=== PATIENT | female | born 1970 | race Caucasian/White ===

== ENCOUNTER 2019-01-23 22:55 | Inpatient (IN) | payer MEDICAID, OTHER ==
[~2019-01-23] VITALS: Ht 165.1 cm; Wt 59.7 kg
[~2019-01-23 22:55] MED LIST: AMLO-145 PO; CEPH-443 PO; DOCU250C58 PO; HYDR-3498 PO; HYDR-843 PO; HYDR2TAB36 PO; IBUP-1542 PO; MEDR2.5T PO; METO-448 PO; NAPR220C61 PO; TRIA15CR52 TOP
[2019-01-23 23:01] VITALS: Ht 165.1 cm; Wt 59.7 kg
[2019-01-23] MEDS ORDERED: ONDANSETRON 4 MG INJ IV STA (23:53)
[2019-01-23] MEDS ORDERED: SOD CHLORIDE 0.9% 500 ML IV STA (23:53)
[2019-01-23] MEDS ORDERED: morphine 4 MG/ML VIAL IV STA (23:53)
[2019-01-24] MEDS ORDERED: ONDANSETRON 4 MG INJ IV PRN (02:30)
[2019-01-24] MEDS ORDERED: hydrALAzine 20 MG INJ IV ONE (02:30)
[2019-01-24] MEDS ORDERED: ACETAMINOPHEN 325 MG TAB PO PRN (02:30)
[2019-01-24] MEDS ORDERED: ONDANSETRON 4 MG INJ IV STA (02:48)
[2019-01-24] MEDS ORDERED: morphine 4 MG/ML VIAL IV STA (02:48)
--- NOTE | 2019-01-24 02:49 | ERD ---
ER Documentation Chief Complaint Chief Complaint PELVIC PAIN AND DYSURIA X 4 DAYS. HPI This is a 48-year-old female pelvic pain dysuria for the past 4 days. She also felt pelvic fullness. She said the pain is mild to moderate intensity. She is also had urgency and frequency of urination. Denies fevers or chills. Denies any other current complaints. Pain is mild to moderate intensity no exacerbating alleviating factors. ROS All systems reviewed and are negative except as per history of present illness. Medications Home Meds Active Scripts Ibuprofen* (Motrin*) 600 Mg Tab, 600 MG PO Q6H PRN for PAIN AND OR ELEVATED TEMP, #30 Prov:LUCY CABALLERO NP 05/30/15 Reported Medications Naproxen* (Naproxen*) 220 Mg Capsule, 220 MG PO TID, CAP 01/24/19 Medroxyprogesterone Acetate* (Provera*) Unknown Strength Tablet, PO DAILY, TAB 01/24/19 Discontinued Reported Medications [none] Unknown Strength No Conflict Check 05/30/15 Discontinued Scripts Hydrocodone Bit-Acetaminophen* ([place]*) 5-325 Mg Tab, 1 TAB PO Q6 PRN for SEVERE PAIN LEVEL 7-10, #20 TAB Prov:LUCY CABALLERO NP 05/30/15 Triamcinolone Acetonide* (Kenalog*) 0.5%-15GM Cr, 1 APPLIC TOP BID, #1 EA Prov:LUCY CABALLERO NP 03/13/15 Hydroxyzine Hcl* (Hydroxyzine Hcl*) 25 Mg Tablet, 25 MG PO Q8H PRN for ITCHING, #30 TAB Prov:LUCY CABALLERO NP 03/13/15 Cephalexin* (Keflex*) 500 Mg Capsule, 500 MG PO Q6 for 10 Days, CAP Prov:LUCY CABALLERO NP 03/13/15 Allergies Allergies: Coded Allergies: iodine (Unverified Allergy, Unknown, RASH, 01/24/19) PMhx/Soc History of Surgery: Yes (anal fissure repair, hemorrhoidectomy, ankle surgery) Hx Alcohol Use: No Hx Substance Use: No Hx Tobacco Use: No Smoking Status: Never smoker Physical Exam Vitals Vital Signs Date Temp Pulse Resp B/P (MAP) Pulse Ox O2 O2 Flow FiO2 Time Delivery Rate 01/24/19 61 16 199/112 98 Room Air 02:13 (141) 01/23/19 97.2 96 24 205/103 100 23:01 (137) Physical Exam Const: No acute distress Head: Atraumatic Eyes: Normal Conjunctiva ENT: Normal External Ears, Nose and Mouth. Neck: Full range of motion. No meningismus. Resp: Clear to auscultation bilaterally Cardio: Regular rate and rhythm, no murmurs Abd: Soft, non tender, non distended. Normal bowel sounds Skin: No petechiae or rashes Back: No midline or flank tenderness Ext: No cyanosis, or edema Neur: Awake and alert Psych: Normal Mood and Affect Result Diagram: 01/23/19234901/23/192349 Results 24 hrs Laboratory Tests Test 01/23/19 01:45 01/23/19 23:50 01/24/19 00:12 Urine Color RICK Urine Clarity SLIGHTLY CLOUDY Urine pH 5.0 Urine Specific [place] 1.030 Urine Ketones 1+ mg/dL Urine Nitrite NEGATIVE mg/dL Urine Bilirubin NEGATIVE mg/dL Urine Urobilinogen NEGATIVE mg/dL Urine Leukocyte Esterase TRACE Toan/ul Urine Microscopic RBC 55 /HPF Urine Microscopic WBC 11 /HPF Urine Squamous Epithelial Cells FEW /HPF Urine Mucus FEW /HPF Urine Hemoglobin 2+ mg/dL Urine Glucose NEGATIVE mg/dL Urine Total Protein 1+ mg/dl White Blood Count 16.8 10^3/ul Red Blood Count 4.96 10^6/ul Hemoglobin 14.0 g/dl Hematocrit 42.8 % Mean Corpuscular Volume 86.3 fl Mean Corpuscular Hemoglobin 28.2 pg Mean Corpuscular 32.7 g/dl Hemoglobin Concent Red Cell Distribution Width 13.3 % Platelet Count 383 10^3/UL Mean Platelet Volume 9.3 fl Immature Granulocytes % 0.400 % Neutrophils % 80.8 % Lymphocytes % 11.1 % Monocytes % 6.1 % Eosinophils % 1.3 % Basophils % 0.3 % Nucleated Red Blood Cells % 0.0 /100WBC Immature Granulocytes # 0.060 10^3/ul Neutrophils # 13.6 10^3/ul Lymphocytes # 1.9 10^3/ul Monocytes # 1.0 10^3/ul Eosinophils # 0.2 10^3/ul Basophils # 0.1 10^3/ul Nucleated Red Blood Cells # 0.0 10^3/ul Sodium Level 142 mmol/L Potassium Level 4.0 mmol/L Chloride Level 108 mmol/L Carbon Dioxide Level 24 mmol/L Anion Gap 10 Blood Urea Nitrogen 16 mg/dl Creatinine 0.84 mg/dl Est Glomerular Filtrat > 60 mL/min Rate mL/min Glucose Level 118 mg/dl Calcium Level 9.3 mg/dl Total Bilirubin 0.9 mg/dl Direct Bilirubin 0.00 mg/dl Indirect Bilirubin 0.9 mg/dl Aspartate Amino 21 IU/L Transf (AST/SGOT) Alanine 26 IU/L Aminotransferase (ALT/SGPT) Alkaline Phosphatase 75 IU/L Total Protein 7.3 g/dl Albumin 4.1 g/dl Globulin 3.20 g/dl Albumin/Globulin Ratio 1.28 Lipase 42 U/L Bedside Urine pH (LAB) 5.5 Bedside Urine Protein (LAB) 1+ Bedside Urine Glucose (UA) Negative Bedside Urine Ketones (LAB) Negative Bedside Urine Blood 2+ Bedside Urine Nitrite (LAB) Negative Bedside Urine Leukocyte Esterase 1+ (L Current Medications Medications Dose Sig/Ortiz Start Time Status Last (Trade) Ordered Route PRN Stop Time Admin Dose Reason Admin Sodium 500 ml @ Q1H STAT 01/23/19 DC 01/24/19 Chloride 500 mls/hr IV 23:53 00:14 01/24/19 00:52 Morphine 4 mg ONCE STAT 01/23/19 DC 01/24/19 Sulfate IV 23:53 00:15 (morphine) 01/23/19 23:55 Ondansetron 4 mg ONCE STAT 01/23/19 DC 01/24/19 HCl (Zofran IV 23:53 00:15 Inj) 01/23/19 23:55 Hydralazine 20 mg ONCE ONCE 01/24/19 DC 01/24/19 HCl IV 02:30 02:35 (Apresoline) 01/24/19 02:31 Ondansetron 4 mg BRIDGE ORDER 01/24/19 HCl (Zofran PRN IV 02:30 Inj) NAUSEA/VOMITI 01/25/19 02:29 NG 650 mg ER BRIDGE 01/24/19 Acetaminophen PRN PO 02:30 (Tylenol .MILD PAIN 01/25/19 02:29 Tab) 1-3 OR TEMP Procedures/MDM Medical decision makin-year-old female comes in with pelvic pain. She does have 1+ leukoesterase, however I doubt this is a cause of her pain. Culture results are currently pending. She does have multiple pelvic masses concerning for neoplasm. Patient will be admitted further evaluation and management with MRI endorsed to hospitalist team. Patient will need an oncology work-up to di fferentiate these pelvic masses and determine whether or not they are cancerous in nature. Patient made aware of results at bedside and understands care plan and diagnosis. Departure Diagnosis: Primary Impression: Acute pain in female pelvis Condition: Serious ESTEBAN HINOJOSA. Jan 24, 2019 02:49
[2019-01-24] MEDS ORDERED: NACL 0.9% 3 ML SYG IV SCH (06:00)
[2019-01-24] MEDS ORDERED: HYDROmorphONE 0.5 MG/0.5 ML SYG IV ONE (06:00)
[2019-01-24] MEDS ORDERED: ALBUTEROL/IPRATROPIUM (NEB) 3 ML AMP HHN PRN (06:00)
[2019-01-24] MEDS ORDERED: HYDROCODONE/APAP (5/325) TAB PO PRN ×2 (06:00)
[2019-01-24 06:32] VITALS: BP 131/84; PULSE 107; RESP 20
[2019-01-24 07:39] VITALS: BP 145/85; PULSE 82; RESP 18
[2019-01-24] MEDS: DEXTROSE 5%-0.45% NACL 1,000 ML IV SCH ×2 (07:46→15:36)
[2019-01-24] MEDS: CEFTRIAXONE 1 GM/50 ML (PMX) 50 ML IVPB SCH (08:27)
[2019-01-24] MEDS: HEPARIN 5,000 UNIT/1 ML VIAL SC SCH ×2 (08:33→20:39)
[2019-01-24] MEDS ORDERED: METOPROLOL 25 MG TAB PO SCH (09:00)
[2019-01-24] MEDS: ONDANSETRON 4 MG INJ IV PRN ×3 (09:53→23:59)
--- NOTE | 2019-01-24 10:15 | PN ---
Date/Time of Note Date/Time of Note DATE: 01/24/19 TIME: 10:06 Assessment/Plan VTE Prophylaxis Pharmacological prophylaxis: NA/contraindicated Pharm contraindication: low risk/ambulating Lines/Catheters IV Catheter Type (from Nrsg): Saline Lock Urinary Cath still in place: Yes Reason Cath still needed: urinary retention Assessment/Plan Hospital Course 48 y/o F who presented with pelvic pain and dysuria for the past 4 days currently managed as follows: 1. Pelvic mass, -US shows complex 11cm ovarian cystic mass, radiology recommends MRI to further define. 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 -pelvic pain - pain meds 2. UTI -empiric abx, cultures 3. Urolithiasis without obstruction: -encourage hydration 4. urinary retention: 2/2 pressure from #1? 5. accelerated HTN: improved -continue current meds and titrate for optimal control further interventions per course. Result Diagram: 01/24/1918 01/24/19 0717 Results 24hrs Laboratory Tests Test 01/23/19 23:50 01/24/19 00:12 01/24/19 07:17 01/24/19 07:18 White Blood Count 16.8 #H 17.9 H Red Blood Count 4.96 4.91 Hemoglobin 14.0 14.1 Hematocrit 42.8 42.8 Mean Corpuscular 86.3 87.2 Volume Mean Corpuscular 28.2 L 28.7 L Hemoglobin Mean Corpuscular 32.7 32.9 Hemoglobin Concent Red Cell 13.3 13.4 Distribution Width Platelet Count 383 385 Mean Platelet Volume 9.3 # 9.5 Immature 0.400 0.400 Granulocytes % Neutrophils % 80.8 H 92.2 H Lymphocytes % 11.1 L 4.0 L Monocytes % 6.1 3.2 Eosinophils % 1.3 0.0 Basophils % 0.3 0.2 Nucleated Red Blood 0.0 0.0 Cells % Immature 0.060 H 0.080 H Granulocytes # Neutrophils # 13.6 H 16.5 H Lymphocytes # 1.9 0.7 L Monocytes # 1.0 H 0.6 Eosinophils # 0.2 0.0 Basophils # 0.1 0.0 Nucleated Red Blood 0.0 0.0 Cells # Sodium Level 142 135 Potassium Level 4.0 4.0 Chloride Level 108 106 Carbon Dioxide Level 24 22 Anion Gap 10 7 Blood Urea Nitrogen 16 15 Creatinine 0.84 0.91 Est Glomerular > 60 > 60 Filtrat Rate mL/min Glucose Level 118 124 Calcium Level 9.3 8.4 Total Bilirubin 0.9 1.3 Direct Bilirubin 0.00 0.00 Indirect Bilirubin 0.9 1.3 H Aspartate Amino 21 24 Transf (AST/SGOT) Alanine 26 22 Aminotransferase (AL T/SGPT) Alkaline Phosphatase 75 68 Total Protein 7.3 7.1 Albumin 4.1 3.7 Globulin 3.20 3.40 H Albumin/Globulin 1.28 1.08 Ratio Lipase 42 Bedside Urine pH 5.5 (LAB) Bedside Urine 1+ H Protein (LAB) Bedside Urine Negative Glucose (UA) Bedside Urine Negative Ketones (LAB) Bedside Urine Blood 2+ H Bedside Urine Negative Nitrite (LAB) Bedside Urine 1+ H Leukocyte Esterase (L Hemoglobin A1c 5.2 Phosphorus Level 3.0 Magnesium Level 1.9 Triglycerides Level 50 Cholesterol Level 151 LDL Cholesterol, 107 Calculated HDL Cholesterol 34 L Cholesterol/HDL 4.4 Ratio Thyroid Stimulating Pending Hormone (TSH) Subjective 24 Hr Interval Summary Free Text/Dictation pelvic pain , had urinary retention in ER requiring tomas, mild hematuria likely from trauma after transvaginal USS Exam/Review of Systems Exam Vitals Vital Signs Date Temp Pulse Resp B/P (MAP) Pulse Ox O2 O2 Flow FiO2 Time Delivery Rate 01/24/19 98.9 82 18 145/85 96 Room Air 07:39 (105) Exam General: A&O x3, answering questions appropriately HEENT: NC/ AT. PERRL. EOM intact Neck: supple CVS: S1, S2, RRR. no murmurs. no pain on chest wall palpation Lungs: CTA b/l. no wheezing or rhonchi Abd: soft, tender to deep palpation in lower abd pain, +bs Ext: moving all extremities skin: no rashes Results Results 24hrs Laboratory Tests Test 01/23/19 23:50 01/24/19 00:12 01/24/19 07:17 01/24/19 07:18 White Blood Count 16.8 #H 17.9 H Red Blood Count 4.96 4.91 Hemoglobin 14.0 14.1 Hematocrit 42.8 42.8 Mean Corpuscular 86.3 87.2 Volume Mean Corpuscular 28.2 L 28.7 L Hemoglobin Mean Corpuscular 32.7 32.9 Hemoglobin Concent Red Cell 13.3 13.4 Distribution Width Platelet Count 383 385 Mean Platelet Volume 9.3 # 9.5 Immature 0.400 0.400 Granulocytes % Neutrophils % 80.8 H 92.2 H Lymphocytes % 11.1 L 4.0 L Monocytes % 6.1 3.2 Eosinophils % 1.3 0.0 Basophils % 0.3 0.2 Nucleated Red Blood 0.0 0.0 Cells % Immature 0.060 H 0.080 H Granulocytes # Neutrophils # 13.6 H 16.5 H Lymphocytes # 1.9 0.7 L Monocytes # 1.0 H 0.6 Eosinophils # 0.2 0.0 Basophils # 0.1 0.0 Nucleated Red Blood 0.0 0.0 Cells # Sodium Level 142 135 Potassium Level 4.0 4.0 Chloride Level 108 106 Carbon Dioxide Level 24 22 Anion Gap 10 7 Blood Urea Nitrogen 16 15 Creatinine 0.84 0.91 Est Glomerular > 60 > 60 Filtrat Rate mL/min Glucose Level 118 124 Calcium Level 9.3 8.4 Total Bilirubin 0.9 1.3 Direct Bilirubin 0.00 0.00 Indirect Bilirubin 0.9 1.3 H Aspartate Amino 21 24 Transf (AST/SGOT) Alanine 26 22 Aminotransferase (AL T/SGPT) Alkaline Phosphatase 75 68 Total Protein 7.3 7.1 Albumin 4.1 3.7 Globulin 3.20 3.40 H Albumin/Globulin 1.28 1.08 Ratio Lipase 42 Bedside Urine pH 5.5 (LAB) Bedside Urine 1+ H Protein (LAB) Bedside Urine Negative Glucose (UA) Bedside Urine Negative Ketones (LAB) Bedside Urine Blood 2+ H Bedside Urine Negative Nitrite (LAB) Bedside Urine 1+ H Leukocyte Esterase (L Hemoglobin A1c 5.2 Phosphorus Level 3.0 Magnesium Level 1.9 Triglycerides Level 50 Cholesterol Level 151 LDL Cholesterol, 107 Calculated HDL Cholesterol 34 L Cholesterol/HDL 4.4 Ratio Thyroid Stimulating Pending Hormone (TSH) Imaging Imaging PROCEDURE: CT ABDOMEN AND PELVIS WITHOUT CONTRAST CLINICAL INDICATION: Abdominal pain. TECHNIQUE: CT of the abdomen and pelvis was performed without intravenous contrast. Oral contrast was not administered prior to the examination. Coronal and sagittal reformatted images were obtained from the axial source imag es. Images were reviewed on a high-resolution PACS workstation. DICOM images are available. Dose information: Based on a 32 cm phantom, the estimated radiation dose (CTDIvol mGy) for each series in this exam is 6.8. The estimated cumulative dose (DLP mGy-cm) is 389. One or more of the following dose reduction techniques were used: - Automated exposure control. - Adjustment of the mA and/or kV according to patient size. - Use of iterative reconstruction technique. COMPARISON: None available. FINDINGS: In the absence of intravenous contrast, the study constitutes a limited assessme nt of the solid organs, bowel and vessels. LUNG BASES: Bibasilar dependent subsegmental atelectasis. ABDOMEN/PELVIS: Liver: Normal noncontrast appearance. Gallbladder: Normal noncontrast appearance. Bile ducts: No intrahepatic or extrahepatic biliary duct dilatation. Spleen: Normal noncontrast appearance. Pancreas: Normal noncontrast appearance. Adrenal glands: Normal noncontrast appearance. Kidneys and ureters: Cystic lesion of the right inferior pole measuring 1.7 x 1.9 cm. Further characterization with renal ultrasound is recommended. Mild right hydroureternephrosis secondary to a large complex intrapelvic mass. No left-sided hydronephrosis. No renal calculus. Aorta and IVC: Normal size. Lymph nodes: Normal noncontrast appearance. Gastrointestinal tract: There is moderate retained debris in the stomach. Small bowel loops are nondilated. Moderate retained fecal matter is present throughout the colon which may reflect constipation. Redundant sigmoid colon. Scattered colonic diverticulosis without diverticulitis. Appendix: The appendix is not seen. Bladder: Decompressed urinary bladder with indwelling Tomas catheter. The urinary bladder is compressed and displaced anterior and right lateral by an enlarged circumscribed complex intrapelvic mass. Pelvic Organs: Enlarged complex circumscribed cystic mass located in the central pelvis measuring at least 11 x 11 x 10 cm (AP, transverse, craniocaudal). Findings are likely ovarian in etiology. Correlate with surgical history. Has the patient undergone a previous hysterectomy? Surgical clips located in the left pelvis adjacent to left lateral border of this mass. Peritoneal cavity: No free fluid or free intraperitoneal air. Abdominal wall: Normal noncontrast appearance. MUSCULOSKELETAL: Bones: No acute fracture.No suspicious bone lesions. Severe disc height loss and anterior spinal degenerative enthesopathy changes involving L4-5. Trace retrospondylolisthesis of L4 on L5. IMPRESSION: 1. Complex circumscribed cystic mass located in the central pelvis measuring at least 11 x 11 x 10 cm likely of ovarian origin. Further evaluation with pelvic ultrasound and ultimately MRI recommended. 2. Mild right sided hydroureteronephrosis secondary to a several pelvic complex cystic mass. 3. Cystic lesion of the right inferior renal pole measuring 11 x 11 x 10 cm. F urther evaluation with renal ultrasound is recommended. 4. Severe disc height loss and anterior spinal degenerative enthesopathy changes involving L4-5. 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 on 01/24/2019 with instructions to provide the results of this examination to the patient's telemetry technician. Please note that in the absence of intravenous contrast the study does not evaluate the patency of the vasculature. RPTAT: HRSR Physician Mckenzie Date Time Electronically viewed and signed by Physician Mckenzie on 01/24/2019 01:20 RR/ CC: ESTEBAN HINOJOSA [id number] Medications Medication Current Medications Ondansetron HCl (Zofran Inj) 4 mg BRIDGE ORDER PRN IV NAUSEA/VOMITING; Start 01/24/19 at 02:30; Stop 01/25/19 at 02:29 Acetaminophen (Tylenol Tab) 650 mg ER BRIDGE PRN PO .MILD PAIN 1-3 OR TEMP; Start 01/24/19 at 02:30; Stop 01/25/19 at 02:29 Dextrose/Sodium Chloride 1,000 ml @ 120 mls/hr Q8H20M IV Last administered on 01/24/19at 07:46; Admin Dose 120 MLS/HR; Start 01/24/19 at 05:55 IV Flush (NS 3 ml) 3 ml PER PROTOCOL IV ; Start 01/24/19 at 06:00 Ondansetron HCl (Zofran Inj) 4 mg Q6H PRN IV NAUSEA/VOMITING Last administered on 01/24/19at 09:53; Admin Dose 4 MG; Start 01/24/19 at 06:00 Acetaminophen (Tylenol Tab) 650 mg Q6H PRN PO .PAIN 1-3 OR TEMP; Start 01/24/19 at 06:00 Acetaminophen/ Hydrocodone Bitart ([place] (5/325)) 1 tab Q6H PRN PO .MOD PAIN 4- 6; Start 01/24/19 at 06:00 Acetaminophen/ Hydrocodone Bitart ([place] (5/325)) 2 tab Q6H PRN PO .SEVERE PAIN 7-10; Start 01/24/19 at 06:00 Heparin Sodium (Porcine) (Heparin (5000 Units/1ml)) 5,000 unit Q12 SC Last administered on 01/24/19at 08:33; Admin Dose 5,000 UNIT; Start 01/24/19 at 09:00 Albuterol/ Ipratropium (Duoneb) 3 ml Q2H RESP THERAPY PRN HHN SHORTNESS OF BREATH; Start 01/24/19 at 06:00 Metoprolol Tartrate (Lopressor) 25 mg Q12 PO Last administered on 01/24/19at 08:31; Admin Dose 25 MG; Start 01/24/19 at 09:00 Ceftriaxone Sodium 50 ml @ 100 mls/hr DAILY IVPB Last administered on 01/24/19at 08:27; Admin Dose 100 MLS/HR; Start 01/24/19 at 09:00 SERGE MARY Jan 24, 2019 10:15
[2019-01-24] MEDS: morphine 2 MG INJ IV PRN (12:46)
[2019-01-24 14:00] VITALS: BP 157/96; PULSE 93; RESP 18
[2019-01-24] MEDS: KETOROLAC 30 MG INJ IV PRN (17:46)
[2019-01-24] MEDS: METOPROLOL 25 MG TAB PO SCH (17:46)
[2019-01-24 19:24] VITALS: BP 137/72; PULSE 86; RESP 18
--- NOTE | 2019-01-24 20:08 | CONS ---
Assessment/Plan Assessment/Plan Hospital Course (Demo Recall) 48-year-old female presented to the emergency room was severe abdominal pain. She underwent a CT scan of the abdomen and pelvis and that showed: 1. Complex circumscribed cystic mass located in the central pelvis measuring at least 11 x 11 x 10 cm likely of ovarian origin. Further evaluation with pelvic ultrasound and ultimately MRI recommended. 2. Mild right sided hydroureternephrosis secondary to a several pelvic complex cystic mass. 3. Cystic lesion of the right inferior renal pole measuring 11 x 11 x 10 cm. Further evaluation with renal ultrasound is recommended. 4. Severe disc height loss and anterior spinal degenerative enthesopathy changes involving L4-5. Renal ultrasound: Mild bilateral hydronephrosis. 2.1 cm simple right renal cyst. 13.9 cm potential soft tissue mass in the midline of the pelvis that likely corresponds to the pelvic mass seen on prior CT. Incidental note made of cholelithiasis Pelvic ultrasound: Large solid mass in the pelvis. A possible ovarian mass cannot be excluded. Surgical consultation and pelvic MRI is recommended. Patient states that she has been menopausal for about 2 years and she has been spotting on and off for the past 6 months. She made an appointment with [facility] on January 04 and she went to that appointment but they could not do much because her vagina is too small and there was no place to do the ultrasound. She is supposed to go back to them in February for additional work-up. Presently the patient has an indwelling Saavedra catheter and that is draining blood-tinged urine and that is because of the undue pelvic ultrasound. The ureters are obstructed because of the pressure on the bladder by the mass. The patient needs OPERATIONS TRAINER consultation for possible excision removal of the pelvic mass. Consultation Date/Type/Reason Admit Date/Time Jan 24, 2019 at 02:22 Date of Consultation: Jan 24, 2019 Type of Consult Urology Reason for Consultation Bilateral hydronephrosis and pelvic mass Requesting Provider: SERGE MARY Date/Time of Note DATE: 01/24/19 TIME: 19:56 Hx of Present Illness 48-year-old female presented to the emergency room was severe abdominal pain. She underwent a CT scan of the abdomen and pelvis and that showed: 1. Complex circumscribed cystic mass located in the central pelvis measuring at least 11 x 11 x 10 cm likely of ovarian origin. Further evaluation with pelvic ultrasound and ultimately MRI recommended. 2. Mild right sided hydroureternephrosis secondary to a several pelvic complex cystic mass. 3. Cystic lesion of the right inferior renal pole measuring 11 x 11 x 10 cm. Further evaluation with renal ultrasound is recommended. 4. Severe disc height loss and anterior spinal degenerative enthesopathy changes involving L4-5. Renal ultrasound: Mild bilateral hydronephrosis. 2.1 cm simple right renal cyst. 13.9 cm potential soft tissue mass in the midline of the pelvis that likely corresponds to the pelvic mass seen on prior CT. Incidental note made of cholelithiasis Pelvic ultrasound: Large solid mass in the pelvis. A possible ovarian mass cannot be excluded. Surgical consultation and pelvic MRI is recommended. Patient states that she has been menopausal for about 2 years and she has been spotting on and off for the past 6 months. She made an appointment with [facility] on January 04 and she went to that appointment but they could not do much because her vagina is too small and there was no place to do the ultrasound. She is supposed to go back to them in February for additional work-up. Subjective hx not possible: pt non-verbal Constitutional: no complaints Eyes: no complaints ENT: no complaints Respiratory: no complaints Cardiovascular: no complaints Gastrointestinal: pain (Lower abdomen) Genitourinary: other (Difficulty urinating) Musculoskeletal: no complaints Skin: no complaints Neurologic: no complaints Past Medical History Medical History: no pertinent history Home Meds Active Scripts Ibuprofen* (Motrin*) 600 Mg Tab, 600 MG PO Q6H PRN for PAIN AND OR ELEVATED TEMP, #30 Prov:LUCY CABALLERO NP 05/30/15 Reported Medications Naproxen* (Naproxen*) 220 Mg Capsule, 220 MG PO TID, CAP 01/24/19 Medroxyprogesterone Acetate* (Provera*) Unknown Strength Tablet, PO DAILY, TAB 01/24/19 Discontinued Reported Medications [none] Unknown Strength No Conflict Check 05/30/15 Discontinued Scripts Hydrocodone Bit-Acetaminophen* (Catlin*) 5-325 Mg Tab, 1 TAB PO Q6 PRN for SEVERE PAIN LEVEL 7-10, #20 TAB Prov:LUCY CABALLERO NP 05/30/15 Triamcinolone Acetonide* (Kenalog*) 0.5%-15GM Cr, 1 APPLIC TOP BID, #1 EA Prov:LUCY CABALLERO NP 03/13/15 Hydroxyzine Hcl* (Hydroxyzine Hcl*) 25 Mg Tablet, 25 MG PO Q8H PRN for ITCHING, #30 TAB Prov:LUCY CABALLERO LOGISTICS CENTER MANAGER 03/13/15 Cephalexin* (Keflex*) 500 Mg Capsule, 500 MG PO Q6 for 10 Days, CAP Prov:LUCY CABALLERO NP 03/13/15 Medications Current Medications Dextrose/Sodium Chloride 1,000 ml @ 100 mls/hr Q10H IV Last administered on 01/24/19at 15:36; Admin Dose 100 MLS/HR; Start 01/24/19 at 05:55 IV Flush (NS 3 ml) 3 ml PER PROTOCOL IV ; Start 01/24/19 at 06:00 Ondansetron HCl (Zofran Inj) 4 mg Q6H PRN IV NAUSEA/VOMITING Last administered on 01/24/19at 18:10; Admin Dose 4 MG; Start 01/24/19 at 06:00 Acetaminophen (Tylenol Tab) 650 mg Q6H PRN PO .PAIN 1-3 OR TEMP; Start 01/24/19 at 06:00 Acetaminophen/ Hydrocodone Bitart ([place]lin (5/325)) 1 tab Q6H PRN PO .MOD PAIN 4- 6; Start 01/24/19 at 06:00 Acetaminophen/ Hydrocodone Bitart ([place] (5/325)) 2 tab Q6H PRN PO .SEVERE PAIN 7-10; Start 01/24/19 at 06:00 Heparin Sodium (Porcine) (Heparin (5000 Units/1ml)) 5,000 unit Q12 SC Last administered on 01/24/19at 08:33; Admin Dose 5,000 UNIT; Start 01/24/19 at 09:00 Albuterol/ Ipratropium (Duoneb) 3 ml Q2H RESP THERAPY PRN HHN SHORTNESS OF BREATH; Start 01/24/19 at 06:00 Ceftriaxone Sodium 50 ml @ 100 mls/hr DAILY IVPB Last administered on 01/24/19at 08:27; Admin Dose 100 MLS/HR; Start 01/24/19 at 09:00 Metoprolol Tartrate (Lopressor) 25 mg Q8H PO Last administered on 01/24/19at 17:46; Admin Dose 25 MG; Start 01/24/19 at 17:00 Morphine Sulfate (morphine) 2 mg Q4H PRN IV SEVERE PAIN LEVEL 7-10 Last administered on 01/24/19at 12:46; Admin Dose 2 MG; Start 01/24/19 at 12:00 Ketorolac Tromethamine (Toradol) 30 mg Q6H PRN IV PAIN LEVEL 1-3 Last administe red on 01/24/19at 17:46; Admin Dose 30 MG; Start 01/24/19 at 16:30; Stop 01/26/19 at 15:00 Allergies: Coded Allergies: iodine (Unverified Allergy, Unknown, RASH, 01/24/19) Past Surgical History Past Surgical Hx: other (Patient had fulguration of her tubes about 5 years ago. She did have 2 pregnancies which miscarry and she did not want to have any children. She also had surgery on her left ankle) Social History Smoking Status: Never smoker Exam/Review of Systems Exam Vitals Vital Signs Date Temp Pulse Resp B/P (MAP) Pulse Ox O2 O2 Flow FiO2 Time Delivery Rate 01/24/19 98.1 86 18 137/72 98 Room Air 19:24 (93) Constitutional: alert Psych: no complaints Head: normocephalic Eyes: nl conjunctiva ENMT: nl external ears & nose Neck: supple Respiratory: normal air movement; No wheezing Cardiovascular: No jugular venous distention (JVD) Gastrointestinal: mass (Lower abdomen) Genitourinary - Female: other (Pelvic exam: Very small vagina and completely blocked by the pelvic mass.) Musculoskeletal: nl extremities to inspection Extremities: No calf tenderness Results Result Diagram: 01/24/19 0718 01/24/19 0717 Results 24hrs Laboratory Tests Test 01/23/19 23:50 01/24/19 00:12 01/24/19 07:17 01/24/19 07:18 White Blood Count 16.8 #H 17.9 H Red Blood Count 4.96 4.91 Hemoglobin 14.0 14.1 Hematocrit 42.8 42.8 Mean Corpuscular 86.3 87.2 Volume Mean Corpuscular 28.2 L 28.7 L Hemoglobin Mean Corpuscular 32.7 32.9 Hemoglobin Concent Red Cell 13.3 13.4 Distribution Width Platelet Count 383 385 Mean Platelet Volume 9.3 # 9.5 Immature 0.400 0.400 Granulocytes % Neutrophils % 80.8 H 92.2 H Lymphocytes % 11.1 L 4.0 L Monocytes % 6.1 3.2 Eosinophils % 1.3 0.0 Basophils % 0.3 0.2 Nucleated Red Blood 0.0 0.0 Cells % Immature 0.060 H 0.080 H Granulocytes # Neutrophils # 13.6 H 16.5 H Lymphocytes # 1.9 0.7 L Monocytes # 1.0 H 0.6 Eosinophils # 0.2 0.0 Basophils # 0.1 0.0 Nucleated Red Blood 0.0 0.0 Cells # Sodium Level 142 135 Potassium Level 4.0 4.0 Chloride Level 108 106 Carbon Dioxide Level 24 22 Anion Gap 10 7 Blood Urea Nitrogen 16 15 Creatinine 0.84 0.91 Est Glomerular > 60 > 60 Filtrat Rate mL/min Glucose Level 118 124 Calcium Level 9.3 8.4 Total Bilirubin 0.9 1.3 Direct Bilirubin 0.00 0.00 Indirect Bilirubin 0.9 1.3 H Aspartate Amino 21 24 Transf (AST/SGOT) Alanine 26 22 Aminotransferase (AL T/SGPT) Alkaline Phosphatase 75 68 Total Protein 7.3 7.1 Albumin 4.1 3.7 Globulin 3.20 3.40 H Albumin/Globulin 1.28 1.08 Ratio Lipase 42 Bedside Urine pH 5.5 (LAB) Bedside Urine 1+ H Protein (LAB) Bedside Urine Negative Glucose (UA) Bedside Urine Negative Ketones (LAB) Bedside Urine Blood 2+ H Bedside Urine Negative Nitrite (LAB) Bedside Urine 1+ H Leukocyte Esterase (L Hemoglobin A1c 5.2 Phosphorus Level 3.0 Magnesium Level 1.9 Triglycerides Level 50 Cholesterol Level 151 LDL Cholesterol, 107 Calculated HDL Cholesterol 34 L Cholesterol/HDL 4.4 Ratio Thyroid Stimulating 1.520 Hormone (TSH) Imaging Imaging CT scan of the abdomen and pelvis: 1. Complex circumscribed cystic mass located in the central pelvis measuring at least 11 x 11 x 10 cm likely of ovarian origin. Further evaluation with pelvic ultrasound and ultimately MRI recommended. 2. Mild right sided hydroureternephrosis secondary to a several pelvic complex cystic mass. 3. Cystic lesion of the right inferior renal pole measuring 11 x 11 x 10 cm. Further evaluation with renal ultrasound is recommended. 4. Severe disc height loss and anterior spinal degenerative enthesopathy changes involving L4-5. RP piper helper personnel were contacted by [facility]mila 01:19 a.m. on 01/24/2019 with instructions to provide the results of this examination to the patient's criminal defense attorney. Renal ultrasound: Mild bilateral hydronephrosis. 2.1 cm simple right renal cyst. 13.9 cm potential soft tissue mass in the midline of the pelvis that likely corresponds to the pelvic mass seen on prior CT. Incidental note made of cholelithiasis Pelvic ultrasound: Large solid mass in the pelvis. A possible ovarian mass cannot be excluded. Surgical consultation and pelvic MRI is recommended. Medications Medication Current Medications Dextrose/Sodium Chloride 1,000 ml @ 100 mls/hr Q10H IV Last administered on 01/24/19at 15:36; Admin Dose 100 MLS/HR; Start 01/24/19 at 05:55 IV Flush (NS 3 ml) 3 ml PER PROTOCOL IV ; Start 01/24/19 at 06:00 Ondansetron HCl (Zofran Inj) 4 mg Q6H PRN IV NAUSEA/VOMITING Last administered on 01/24/19at 18:10; Admin Dose 4 MG; Start 01/24/19 at 06:00 Acetaminophen (Tylenol Tab) 650 mg Q6H PRN PO .PAIN 1-3 OR TEMP; Start 01/24/19 at 06:00 Acetaminophen/ Hydrocodone Bitart (Catlin (5/325)) 1 tab Q6H PRN PO .MOD PAIN 4- 6; Start 01/24/19 at 06:00 Acetaminophen/ Hydrocodone Bitart ([place]lin (5/325)) 2 tab Q6H PRN PO .SEVERE PAIN 7-10; Start 01/24/19 at 06:00 Heparin Sodium (Porcine) (Heparin (5000 Units/1ml)) 5,000 unit Q12 SC Last administered on 01/24/19at 08:33; Admin Dose 5,000 UNIT; Start 01/24/19 at 09:00 Albuterol/ Ipratropium (Duoneb) 3 ml Q2H RESP THERAPY PRN HHN SHORTNESS OF BREATH; Start 01/24/19 at 06:00 Ceftriaxone Sodium 50 ml @ 100 mls/hr DAILY IVPB Last administered on 01/24/19at 08:27; Admin Dose 100 MLS/HR; Start 01/24/19 at 09:00 Metoprolol Tartrate (Lopressor) 25 mg Q8H PO Last administered on 01/24/19 17:46; Admin Dose 25 MG; Start 01/24/19 at 17:00 Morphine Sulfate (morphine) 2 mg Q4H PRN IV SEVERE PAIN LEVEL 7-10 Last administered on 01/24/19at 12:46; Admin Dose 2 MG; Start 01/24/19 at 12:00 Ketorolac Tromethamine (Toradol) 30 mg Q6H PRN IV PAIN LEVEL 1-3 Last administered on 01/24/19at 17:46; Admin Dose 30 MG; Start 01/24/19 at 16:30; Stop 01/26/19 at 15:00 KEEGAN ALBERTO MD Jan 24, 2019 20:08
[2019-01-24 23:57] VITALS: BP 150/80; PULSE 80; RESP 18
[2019-01-25] MEDS: KETOROLAC 30 MG INJ IV PRN
[2019-01-25] MEDS: METOPROLOL 25 MG TAB PO SCH ×3 (00:02→18:50)
[2019-01-25] MEDS: DEXTROSE 5%-0.45% NACL 1,000 ML IV SCH ×3 (03:47→21:02)
[2019-01-25] MEDS ORDERED: HYDROmorphONE 1 MG/ML SYG IV ONE (03:57)
[2019-01-25 07:33] VITALS: BP 115/68; PULSE 70; RESP 16
[2019-01-25] MEDS: CEFTRIAXONE 1 GM/50 ML (PMX) 50 ML IVPB SCH (08:21)
[2019-01-25] MEDS: HEPARIN 5,000 UNIT/1 ML VIAL SC SCH (08:24)
[2019-01-25] MEDS: ONDANSETRON 4 MG INJ IV PRN (10:19)
[2019-01-25] MEDS: morphine 2 MG INJ IV PRN (10:20)
[2019-01-25] MEDS: morphine 4 MG/ML VIAL IV PRN ×3 (12:12→23:01)
--- NOTE | 2019-01-25 13:59 | CONS ---
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 Saavedra catheter draining very little urine. Creatinine is going up. Results/Medications Result Diagram: 01/25/19 0434 01/25/19 0434 Results 24 hrs Laboratory Tests Test 01/25/19 04:34 01/25/19 10:24 White Blood Count 14.6 H Red Blood Count 4.17 L Hemoglobin 11.9 L Hematocrit 36.8 L Mean Corpuscular Volume 88.2 Mean Corpuscular Hemoglobin 28.5 L Mean Corpuscular Hemoglobin Concent 32.3 Red Cell Distribution Width 13.8 Platelet Count 336 Mean Platelet Volume 9.8 Immature Granulocytes % 0.500 H Neutrophils % 82.0 H Lymphocytes % 10.0 L Monocytes % 6.0 Eosinophils % 1.2 Basophils % 0.3 Nucleated Red Blood Cells % 0.0 Immature Granulocytes # 0.070 H Neutrophils # 11.9 H Lymphocytes # 1.5 Monocytes # 0.9 Eosinophils # 0.2 Basophils # 0.0 Nucleated Red Blood Cells # 0.0 Sodium Level 134 L Potassium Level 3.9 Chloride Level 105 Carbon Dioxide Level 20 L Anion Gap 9 Blood Urea Nitrogen 21 H Creatinine 2.56 #H Est Glomerular Filtrat Rate mL/min 20 L Glucose Level 122 Calcium Level 7.3 L Phosphorus Level 4.8 Magnesium Level 1.8 Prothrombin Time 13.0 Prothrombin Time Ratio 1.0 INR International Normalized Ratio 0.97 Activated Partial Thromboplast Time 37.8 H Home Meds Active Scripts Ibuprofen* (Motrin*) 600 Mg Tab, 600 MG PO Q6H PRN for PAIN AND OR ELEVATED TEMP, #30 Prov:LUCY CABALLERO NP 05/30/15 Reported Medications Naproxen* (Naproxen*) 220 Mg Capsule, 220 MG PO TID, CAP 01/24/19 Medroxyprogesterone Acetate* (Provera*) Unknown Strength Tablet, PO DAILY, TAB 01/24/19 Discontinued Reported Medications [none] Unknown Strength No Conflict Check 05/30/15 Discontinued Scripts Hydrocodone Bit-Acetaminophen* ([place]amo*) 5-325 Mg Tab, 1 TAB PO Q6 PRN for SEVERE PAIN LEVEL 7-10, #20 TAB Prov:LUCY CABALLERO NP 05/30/15 Triamcinolone Acetonide* (Kenalog*) 0.5%-15GM Cr, 1 APPLIC TOP BID, #1 EA Prov:LUCY CABALLERO NP 03/13/15 Hydroxyzine Hcl* (Hydroxyzine Hcl*) 25 Mg Tablet, 25 MG PO Q8H PRN for ITCHING, #30 TAB Prov:LUCY CABALLERO NP 03/13/15 Cephalexin* (Keflex*) 500 Mg Capsule, 500 MG PO Q6 for 10 Days, CAP Prov:LUCY CABALLERO NP 03/13/15 Medications Current Medications Dextrose/Sodium Chloride 1,000 ml @ 100 mls/hr Q10H IV Last administered on 01/25/19at 12:12; Admin Dose 100 MLS/HR; Start 01/24/19 at 05:55 IV Flush (NS 3 ml) 3 ml PER PROTOCOL IV ; Start 01/24/19 at 06:00 Ondansetron HCl (Zofran Inj) 4 mg Q6H PRN IV NAUSEA/VOMITING Last administered on 01/25/19at 10:19; Admin Dose 4 MG; Start 01/24/19 at 06:00 Acetaminophen (Tylenol Tab) 650 mg Q6H PRN PO .PAIN 1-3 OR TEMP; Start 01/24/19 at 06:00 Acetaminophen/ Hydrocodone Bitart ([place] (5/325)) 1 tab Q6H PRN PO MILD PAIN LEVEL 1-3; Start 01/24/19 at 06:00 Acetaminophen/ Hydrocodone Bitart ([place] (5/325)) 2 tab Q6H PRN PO MODERATE PAIN LEVEL 4-6; Start 01/24/19 at 06:00 Heparin Sodium (Porcine) (Heparin (5000 Units/1ml)) 5,000 unit Q12 SC Last administered on 01/25/19at 08:24; Admin Dose 5,000 UNIT; Start 01/24/19 at 09:00; Status Hold Albuterol/ Ipratropium (Duoneb) 3 ml Q2H RESP THERAPY PRN HHN SHORTNESS OF BREATH; Start 01/24/19 at 06:00 Ceftriaxone Sodium 50 ml @ 100 mls/hr DAILY IVPB Last administered on 01/25/19at 08:21; Admin Dose 100 MLS/HR; Start 01/24/19 at 09:00 Metoprolol Tartrate (Lopressor) 25 mg Q8H PO Last administered on 01/25/19at 08:21; Admin Dose 25 MG; Start 01/24/19 at 17:00 Morphine Sulfate (morphine) 4 mg Q4H PRN IV SEVERE PAIN LEVEL 7-10 Last administered on 01/25/19at 12:12; Admin Dose 4 MG; Start 01/25/19 at 10:30 Assessment/Plan Hospital Course (Demo Recall) 48-year-old female presented to the emergency room was severe abdominal pain. She underwent a CT scan of the abdomen and pelvis and that showed: 1. Complex circumscribed cystic mass located in the central pelvis measuring at least 11 x 11 x 10 cm likely of ovarian origin. Further evaluation with pelvic ultrasound and ultimately MRI recommended. 2. Mild right sided hydroureternephrosis secondary to a several pelvic complex cystic mass. 3. Cystic lesion of the right inferior renal pole measuring 11 x 11 x 10 cm. Further evaluation with renal ultrasound is recommended. 4. Severe disc height loss and anterior spinal degenerative enthesopathy changes involving L4-5. Renal ultrasound: Mild bilateral hydronephrosis. 2.1 cm simple right renal cyst. 13.9 cm potential soft tissue mass in the midline of the pelvis that likely corresponds to the pelvic mass seen on prior CT. Incidental note made of cholelithiasis Pelvic ultrasound: Large solid mass in the pelvis. A possible ovarian mass cannot be excluded. Surgical consultation and pelvic MRI is recommended. Patient states that she has been menopausal for about 2 years and she has been spotting on and off for the past 6 months. She made an appointment with [facility] on January 04 and she went to that appointment but they could not do much because her vagina is too small and there was no place to do the ultrasound. She is supposed to go back to them in February for additional w ork-up. Presently the patient has an indwelling Saavedra catheter and that is draining blood-tinged urine and that is because of the undue pelvic ultrasound. The ureters are obstructed because of the pressure on the bladder by the mass. The patient needs MINE SUPERVISOR consultation for possible excision removal of the pelvic mass. Since she has hydronephrosis and the ureters are compressed by the tumor she ne eds bilateral nephrostomy tubes to keep her kidney function well. If the radiologist thinks that there is no hydronephrosis enough to do the nephrostomy tubes today we will try to do it tomorrow. Her bladder is pushed anteriorly by the tumor and the ureters are compressed by the tumor it may be difficult to put JJ stents in addition the stents may not drain well because of the pressure by the tumor. It would be better to drain her kidneys directly through nephrostomies away from the area of the tumor. KEEGAN ALBERTO MD Jan 25, 2019 13:59
[2019-01-25 15:11] VITALS: BP 108/67; PULSE 79; RESP 19
[2019-01-25 19:27] VITALS: BP 115/66; PULSE 87; RESP 18
[2019-01-26] VITALS (15 sets, daily range): BP systolic 101–146; BP diastolic 56–84; PULSE 85–106; RESP 16–24
[2019-01-26] MEDS: METOPROLOL 25 MG TAB PO SCH ×3 (00:27→17:00)
[2019-01-26] MEDS: DEXTROSE 5%-0.45% NACL 1,000 ML IV SCH ×2 (00:28→11:46)
[2019-01-26] MEDS: morphine 4 MG/ML VIAL IV PRN (08:46)
[2019-01-26] MEDS: CEFTRIAXONE 1 GM/50 ML (PMX) 50 ML IVPB SCH (08:46)
--- NOTE | 2019-01-26 08:59 | HP ---
Date/Time of Note Date/Time of Note DATE: 01/24/19 TIME: 07:50 Assessment/Plan VTE Prophylaxis Pharmacological prophylaxis: heparin Lines/Catheters IV Catheter Type (from Nrsg): Saline Lock Urinary Cath still in place: Yes Reason Cath still needed: other (indicate) Assessment/Plan Assessment/Plan 1. Suprapubic pain: Likely secondary to pelvic mass -Obtain pelvic ultrasound and abdominal MRI for further evaluation -Gynecology consult -Tumor markers -Pain management 2. Pelvic mass: See #1 3. Cystic lesion of the right inferior renal pole -Follow-up renal ultrasound 4. History of methamphetamine abuse 5. DUB: Suspect patient with a history of uterine fibroid -Patient has been on progesterone -Gynecology who was consulted for #1, to also address this Result Diagram: 01/23/19 2350 01/23/19 2350 Results 24hrs Laboratory Tests Test 01/23/19 23:50 01/24/19 00:12 White Blood Count 16.8 #H Red Blood Count 4.96 Hemoglobin 14.0 Hematocrit 42.8 Mean Corpuscular Volume 86.3 Mean Corpuscular Hemoglobin 28.2 L Mean Corpuscular Hemoglobin Concent 32.7 Red Cell Distribution Width 13.3 Platelet Count 383 Mean Platelet Volume 9.3 # Immature Granulocytes % 0.400 Neutrophils % 80.8 H Lymphocytes % 11.1 L Monocytes % 6.1 Eosinophils % 1.3 Basophils % 0.3 Nucleated Red Blood Cells % 0.0 Immature Granulocytes # 0.060 H Neutrophils # 13.6 H Lymphocytes # 1.9 Monocytes # 1.0 H Eosinophils # 0.2 Basophils # 0.1 Nucleated Red Blood Cells # 0.0 Sodium Level 142 Potassium Level 4.0 Chloride Level 108 Carbon Dioxide Level 24 Anion Gap 10 Blood Urea Nitrogen 16 Creatinine 0.84 Est Glomerular Filtrat Rate mL/min > 60 Glucose Level 118 Calcium Level 9.3 Total Bilirubin 0.9 Direct Bilirubin 0.00 Indirect Bilirubin 0.9 Aspartate Amino Transf (AST/SGOT) 21 Alanine Aminotransferase (ALT/SGPT) 26 Alkaline Phosphatase 75 Total Protein 7.3 Albumin 4.1 Globulin 3.20 Albumin/Globulin Ratio 1.28 Lipase 42 Bedside Urine pH (LAB) 5.5 Bedside Urine Protein (LAB) 1+ H Bedside Urine Glucose (UA) Negative Bedside Urine Ketones (LAB) Negative Bedside Urine Blood 2+ H Bedside Urine Nitrite (LAB) Negative Bedside Urine Leukocyte Esterase (L 1+ H HPI/ROS Admit Date/Time Admit Date/Time Jan 24, 2019 at 02:22 Hx of Present Illness Patient is a 48-year-old female with a history of methamphetamine abuse, DUB who presented to ER complaining of lower abdominal pain. She also complains of intermittent lower extremity cramps. Abdominal pain is actually mainly in the suprapubic area and has been going on for several days. She reported nausea but no vomiting. She denied diarrhea. She said she took methamphetamine yesterday because somebody told her that it was good for her "blood flow" to help with lower extremity cramps. On further questioning, she said that she has been taking progesterone for the past 3 years for abdominal cramps and vaginal bleeding/spotting. She states she did see a formula maker a month ago. Biopsy was attempted, however it was unsuccessful because " my opening was too small". Mom presented to ER today, CT abdomen/pelvis shows the followin. Complex circumscribed cystic mass located in the central pelvis measuring at least 11 x 11 x 10 cm likely of ovarian origin. Further evaluation with pelvic ultrasound and ultimately MRI recommended. 2. Mild right sided hydroureteronephrosis secondary to a several pelvic complex cystic mass. 3. Cystic lesion of the right inferior renal pole measuring 11 x 11 x 10 cm. Further evaluation with renal ultrasound is recommended. 4. Severe disc height loss and anterior spinal degenerative enthesopathy changes involving L4-5. PMH/Family/Social Past Medical History Past Surgical Hx: other (see hpi) Family History Significant Family History: no pertinent family hx, other Social History Alcohol Use: other Smoking Status: Unknown if ever smoked Drug Use: other Exam Constitutional: other (no acute distress) Head: normocephalic Eyes: PERRL Neck: supple Respiratory: clear to auscultation Cardiovascular: nl pulses Gastrointestinal: soft Extremities: normal pulses Medications Current Medications Ondansetron HCl (Zofran Inj) 4 mg BRIDGE ORDER PRN IV NAUSEA/VOMITING; Start 01/24/19 at 02:30; Stop 01/25/19 at 02:29 Acetaminophen (Tylenol Tab) 650 mg ER BRIDGE PRN PO .MILD PAIN 1-3 OR TEMP; Start 01/24/19 at 02:30; Stop 01/25/19 at 02:29 Dextrose/Sodium Chloride 1,000 ml @ 120 mls/hr Q8H20M IV Last administered on 01/24/19at 07:46; Admin Dose 120 MLS/HR; Start 01/24/19 at 05:55 IV Flush (NS 3 ml) 3 ml PER PROTOCOL IV ; Start 01/24/19 at 06:00 Ondansetron HCl (Zofran Inj) 4 mg Q6H PRN IV NAUSEA/VOMITING; Start 01/24/19 at 06:00 Acetaminophen (Tylenol Tab) 650 mg Q6H PRN PO .PAIN 1-3 OR TEMP; Start 01/24/19 at 06:00 Acetaminophen/ Hydrocodone Bitart ([place] (5/325)) 1 tab Q6H PRN PO .MOD PAIN 4- 6; Start 01/24/19 at 06:00 Acetaminophen/ Hydrocodone Bitart ([place] (5/325)) 2 tab Q6H PRN PO .SEVERE PAIN 7-10; Start 01/24/19 at 06:00 Heparin Sodium (Porcine) (Heparin (5000 Units/1ml)) 5,000 unit Q12 SC ; Start 01/24/19 at 09:00 Albuterol/ Ipratropium (Duoneb) 3 ml Q2H RESP THERAPY PRN HHN SHORTNESS OF BREATH; Start 01/24/19 at 06:00 Metoprolol Tartrate (Lopressor) 25 mg Q12 PO ; Start 01/24/19 at 09:00 Ceftriaxone Sodium 50 ml @ 100 mls/hr DAILY IVPB ; Start 01/24/19 at 09:00 Coded Allergies: iodine (Unverified Allergy, Unknown, RASH, 01/24/19) Social History Smoking Status: Never smoker Exam/Review of Systems Vital Signs Vitals Vital Signs Date Temp Pulse Resp B/P (MAP) Pulse Ox O2 O2 Flow FiO2 Time Delivery Rate 01/24/19 98.9 82 18 145/85 96 Room Air 07:39 (105) ESTEBAN TORRES MD Jan 24, 2019 08:03
[2019-01-26] MEDS ORDERED: HYDROmorphONE 1 MG/ML SYG IV STA (11:36)
[2019-01-26] MEDS ORDERED: LORAZEPAM 2 MG INJ IV PRN (12:30)
--- NOTE | 2019-01-26 12:54 | CONS ---
Assessment/Plan Assessment/Plan Hospital Course (Demo Recall) Abdominal pain Obstructive uropathy due to large pelvic mass with pressure effect over the ure ters. Status post nephrostomy. Assessment/Plan (Daily) MRI and ultrasound finding concerning for possible cirrhosis adenocarcinoma and malignancy Renal cyst noted in MRI as well. Patient is a candidate for surgical management due to obstructive uropathy with removal of pelvic mass.. MRI finding questionable for ovarian origin of pelvic mass, Recommended the patient to be seen by SANITATION SUPERINTENDENT oncologist surgical management should be performed by SANITATION SUPERINTENDENT oncologis. This plan of care discussed with primary team, hospitalist who agreed to consult SANITATION SUPERINTENDENT oncologist at [facility]. If that not feasible consider transfer to [facility] where the patient had initially original care Pain management by primary care team. Please reconsult general SANITATION SUPERINTENDENT for any other questions. Consultation Date/Type/Reason Admit Date/Time Jan 24, 2019 at 02:22 Date of Consultation: Jan 26, 2019 Type of Consult SANITATION SUPERINTENDENT Reason for Consultation SANITATION SUPERINTENDENT Evaluation Date/Time of Note DATE: 01/26/19 TIME: 12:47 Hx of Present Illness 48-year-old perimenopausal female who has been currently admitted to medicine service due to severe abdominal pain with evidence of obstructive uropathy secondary to large midline pelvic mass, that has been questionable for ovarian malignancy and MRI and imaging. She is a status post nephrostomy tube. I was consulted by medicine for SANITATION SUPERINTENDENT evaluation. Patient reports pelvic pain on and off for the past 3 years that has been worsened since 3 weeks ago. Reports had been seen in all review recently for SANITATION SUPERINTENDENT examination and Pap smear. Pap smear could not be done due to inability to find the cervix. She then lost follow-up. Per patient was given progesterone. She has been also taking Naprosyn and ibuprofen for pelvic pain. Patient reports her last normal menstrual period was 3 years ago but since then had on and off metrorrhagia. Had not been on progesterone for menstrual regulation prior to that since was a started recently at [facility]. She then lost follow-up. Attended to the patient bedside. Reports severe abdominal pain. Subjective hx not possible: other Constitutional: No no complaints, No improved, No chills, No diaphoresis, No disoriented, No febrile, No poor po, No requiring IVF, No requiring O2, No other Eyes: No no complaints, No pain, No discharge, No redness, No visual change, No other ENT: No no complaints, No bleeding, No pain, No congestion, No discharge, No dysphagia, No sore throat, No other Respiratory: No no complaints, No pain, No cough, No pleuritic pain, No shortness of breath, No sputum, No wheezing, No other Cardiovascular: No no complaints, No chest pain, No edema, No lightheadedness, No orthopenea, No palpitations, No paroxysmal nocturnal dyspnea, No other Gastrointestinal: pain; No no complaints, No blood, No constipation, No decreased appetite, No diarrhea, No flatus, No nausea, No passing stool, No vomiting, No other Genitourinary: other (Metrorrhagia) Endocrine: No no complaints, No polyuria, No polydypsia, No dry skin, No temp intolerance, No other Past Medical History Past medical history: 1. History of hemorrhoid and rectal fissure 2. History of broken ankle Past surgical history: 1. Status post surgery for broken ankle 2. S post hemorrhoidectomy and surgery for rectal fissure 3. Status post bilateral nephrostomy due to obstructive nephropathy secondary to large midline pelvic mass Medical History: no pertinent history Home Meds Active Scripts Docusate Sodium* (Colace*) 250 Mg Capsule, 250 MG PO DAILY, #30 CAP Prov:SERGE MARY 01/31/19 Hydromorphone Hcl* (Dilaudid*) 2 Mg Tablet, 2 MG PO Q4H PRN for SEVERE PAIN LEVEL 7-10, #15 TAB Prov:TYRASERGE Boris 01/31/19 Metoprolol Tartrate* (Lopressor*) 25 Mg Tab, 25 MG PO Q8H, #90 TAB 1 Refill Prov:TRISTAN MARYLori Haywood 01/31/19 Amlodipine Besylate* (Amlodipine Besylate*) 5 Mg Tablet, 5 MG PO DAILY, #30 TAB 1 Refill Prov:TYRASERGE 01/31/19 Ibuprofen* (Motrin*) 600 Mg Tab, 600 MG PO Q6H PRN for PAIN AND OR ELEVATED TEMP, #30 Prov:LUCY CABALLERO NP 05/30/15 Reported Medications Naproxen* (Naproxen*) 220 Mg Capsule, 220 MG PO TID, CAP 01/24/19 Medroxyprogesterone Acetate* (Provera*) Unknown Strength Tablet, PO DAILY, TAB 01/24/19 Medications Current Medications Dextrose/Sodium Chloride 1,000 ml @ 100 mls/hr Q10H IV Last administered on 01/26/19at 11:46; Admin Dose 100 MLS/HR; Start 01/24/19 at 05:55 IV Flush (NS 3 ml) 3 ml PER PROTOCOL IV ; Start 01/24/19 at 06:00 Ondansetron HCl (Zofran Inj) 4 mg Q6H PRN IV NAUSEA/VOMITING Last administered on 01/25/19at 10:19; Admin Dose 4 MG; Start 01/24/19 at 06:00 Acetaminophen (Tylenol Tab) 650 mg Q6H PRN PO .PAIN 1-3 OR TEMP; Start 01/24/19 at 06:00 Acetaminophen/ Hydrocodone Bitart ([place] (5/325)) 1 tab Q6H PRN PO MILD PAIN LEVEL 1-3; Start 01/24/19 at 06:00 Acetaminophen/ Hydrocodone Bitart ([place] (5/325)) 2 tab Q6H PRN PO MODERATE PAIN LEVEL 4-6; Start 01/24/19 at 06:00 Heparin Sodium (Porcine) (Heparin (5000 Units/1ml)) 5,000 unit Q12 SC Last administered on 01/25/19at 08:24; Admin Dose 5,000 UNIT; Start 01/24/19 at 09:00; Status Hold Albuterol/ Ipratropium (Duoneb) 3 ml Q2H RESP THERAPY PRN HHN SHORTNESS OF BREATH; Start 01/24/19 at 06:00 Ceftriaxone Sodium 50 ml @ 100 mls/hr DAILY IVPB Last administered on 01/26/19at 08:46; Admin Dose 100 MLS/HR; Start 01/24/19 at 09:00 Metoprolol Tartrate (Lopressor) 25 mg Q8H PO Last administered on 01/26/19at 00:27; Admin Dose 25 MG; Start 01/24/19 at 17:00 Hydromorphone HCl (Dilaudid BAG LOADER) 0.2MG DOSE 10... Q4PCA IV ; Start 01/26/19 at 1 2:00 Lorazepam (Ativan) 0.5 mg Q8H PRN IV ANXIETY; Start 01/26/19 at 12:30 Allergies: Coded Allergies: iodine (Unverified Allergy, Unknown, RASH, 01/24/19) Past Surgical History Past Surgical Hx: no surgical history, other (Patient had fulguration of her tubes about 5 years ago. She did have 2 pregnancies which miscarry and she did not want to have any children. She also had surgery on her left ankle) Family History Significant Family History: no pertinent family hx, other (Mother with history of breast cancer and lung cancer, maternal grandmother with history of tuberculosis) Social History Was a passive smoker. Stopped about a month. Rarely drinks alcohol. Used to occasionally using methamphetamine in the past. Smoking Status: Never smoker Exam/Review of Systems Exam Vitals Vital Signs Date Temp Pulse Resp B/P (MAP) Pulse Ox O2 O2 Flow FiO2 Time Delivery Rate 01/26/19 98.1 89 18 109/56 99 Room Air 07:30 (73) Intake and Output 01/25/19 01/25/19 01/26/19 1515:00 23:00 07:00 IntakeIntake Total 1020 ml 500 ml 1000 ml OutputOutput Total 40 ml 80 ml BalanceBalance 1020 ml 460 ml 920 ml Constitutional: alert, oriented, distress Psych: anxiety, depression Head: No normocephalic, No atraumatic, No lacerations, No hematomas, No other Eyes: No nl conjunctiva, No EOMI, No nl lids, No nl sclera, No PERRL, No icteric, No fundi, disc, No other ENMT: No nl external ears & nose, No nl lips & teeth, No nl nasal mucosa & septum, No mucosa pink and moist, No intubated, No tympanic membranes, No other Neck: No supple, No non-tender, No jvd, No bruits, No masses, No thyromegaly, No nuchal rigidity, No other Respiratory: No clear to auscultation, No normal air movement, No congested cough, No crackles/rales, No diminished breath sounds, No intercostal retraction, No labored breathing, No respirations, No tactile fremitus, No wheezing, No other Cardiovascular: No regular rate and rhythm, No nl pulses, No bruits, No diastolic murmur, No edema, No gallop, No irregular rhythm, No jugular venous distention (JVD), No murmurs/extra sounds, No rub, No systolic murmur, No S3, No S4, No other Gastrointestinal: other (Abdomen, tenderness and especially lower abdomen below the umbilicus as well as some tenderness in the upper abdomen. Voluntary gua rding noted. No rebound tenderness, rigidity noted.) Genitourinary - Female: other (External genitalia within normal limits. Patient cannot tolerate speculum examination. Vaginal examination attempted. Cervix could not be palpable. Evidence of a large pelvic mass completely obstructed the pelvis noted in exam. Tenderness in exam and palpation and abdomen and vaginal area noted. Patient has difficulty tolerating the exam. Speculum exam abandoned due to patient's difficulty tolerating the exam.) Musculoskeletal: No nl extremities to inspection, No nl gait and stance, No joint tenderness, No muscle tone, No muscle weakness, No range of motion, No spine non-tender, No swelling, No other Extremities: No normal pulses, No calf tenderness, No cyanosis, No clubbing, No edema, No pitting pedal edema, No palpable cord, No tenderness, No other Neurological: No FIRE SPRINKLER INSPECTOR II-XII intact, No nl mental status, No nl speech, No nl strength, No confused, No DTR's symmetric, No focal weakness, No lethargic, No numbness, No reflexes, No unresponsive, No other Skin: No nl turgor, No rash or lesions, No diaphoresis, No ecchymosis, No laceration, No puncture, No other Lymph: No nl lymph nodes, No enlarged, No nontender, No other Results Result Diagram: 01/26/19 04201/26/19 0422 Results 24hrs Laboratory Tests Test 01/26/19 04:21 01/26/19 04:22 White Blood Count 12.4 H Red Blood Count 4.19 L Hemoglobin 11.8 L Hematocrit 37.7 Mean Corpuscular Volume 90.0 Mean Corpuscular Hemoglobin 28.2 L Mean Corpuscular Hemoglobin Concent 31.3 L Red Cell Distribution Width 13.9 Platelet Count 348 Mean Platelet Volume 9.7 Immature Granulocytes % 0.400 Neutrophils % 77.1 H Lymphocytes % 13.4 L Monocytes % 7.2 Eosinophils % 1.7 Basophils % 0.2 Nucleated Red Blood Cells % 0.0 Immature Granulocytes # 0.050 H Neutrophils # 9.6 H Lymphocytes # 1.7 Monocytes # 0.9 Eosinophils # 0.2 Basophils # 0.0 Nucleated Red Blood Cells # 0.0 Sodium Level 131 L Potassium Level 4.5 Chloride Level 101 Carbon Dioxide Level 20 L Anion Gap 10 Blood Urea Nitrogen 32 #H Creatinine 5.36 #H Est Glomerular Filtrat Rate mL/min 8 L Glucose Level 101 Calcium Level 7.6 L Imaging Imaging PROCEDURE: MRI ABDOMEN WITH CONTRAST CLINICAL INDICATION: 48 years of age, female. CT performed for abdominal pain demonstrates a mass in the pelvis. TECHNIQUE: An MRI study was performed with intravenous contrast. The following sequences were performed: Axial and coronal SS-T2 FSE, axial SS-T2FSE with fat suppression, axial T1 gradient echo in and out of phase, axial DWI, axial T1 gradient echo with fat suppression pre and post gadolinium x 3 phases and c oronal post gadolinium. Contrast: 10 mL ProHance was administered intravenously. COMPARISON: CT abdomen and pelvis and MRI pelvis from the same day FINDINGS: Lung bases: Normal. Liver: Normal. Negative for significant hepatic steatosis. No focal liver lesions are identified. Hepatic vasculature: Portal veins, splenic vein and SMV are patent. Hepatic veins are patent. Gall Bladder: There is a 1.7 cm calculus in the gallbladder. Gallbladder is moderately distended without wall inflammation. Bile Ducts: No intrahepatic for extrahepatic biliary duct dilatation. Pancreas: Normal. Negative for dilatation of pancreatic duct. Spleen: Normal. Adrenal glands: Normal. Kidneys: There is mild bilateral hydronephrosis and hydroureter with right greater than left bilateral perinephric fat stranding. The cause for ureteral obstruction is the pelvic mass. There is a 2.2 cm simple cyst in the anterior interpolar parenchyma of the right kidney. Kidneys otherwise enhance normally. Vasculature: Aorta is normal caliber and patent. IVC is patent. Lymph nodes: No enlarged lymph nodes. Bowel: Normal. Extraperitoneal compartment: There is edema in the extraperitoneal fat in the pararenal spaces extending into the pelvis. Peritoneal space: No free fluid. Abdominal wall: Normal. Musculoskeletal: No suspicious bone lesions. IMPRESSION: 1. Obstruction of bilateral ureters due to the pelvic mass with mild bilateral hydronephrosis and extensive bilateral perinephric fat stranding. Suggest urology consultation and stent placement. 2. Please see MRI pelvis reported separately for discussion of the pelvic mass that is concerning for malignancy. Negative for evidence of metastatic disease in the upper abdomen. 3. Cholelithiasis without complications. RPTAT: HCTS Vignesh Rich Physician Date Time Electronically viewed and signed by Vignesh Rich Physician on 01/24/2019 20 :27 CS/ CC: TYRATRISTANLori HetalBoris [id number] PROCEDURE: MR PELVIS WITH CONTRAST CLINICAL INDICATION: 48 years of age, female. CT abdomen pelvis performed for abdominal pain demonstrates a pelvic mass. TECHNIQUE: MRI of the pelvis was performed with intravenous contrast. The following sequences were performed: Sagittal, axial and coronal T2, axial T2 with fat suppression, axial T1 gradient echo in and out of phase, axial DWI, axial LAVA pre and post gadolinium and sagittal and coronal LAVA post- gadolinium. Images were reviewed on a high-resolution PACS workstation. Contrast: 10 mL ProHance was administered intravenously. COMPARISON: CT abdomen and pelvis from earlier the same day FINDINGS: UTERUS AND ADNEXAE: Uterus: There is a 8.7 x 13.5 x 9.7 cm complex cystic mass centered on the anterior wall of the cervix that involves the lower uterine segment and anterior wall of the superior vagina in keeping with a cystic neoplasm (11/10 and 12/18). The endocervical canal is displaced posterior by the mass. The mass is well circumscribed and contains hemorrhagic fluid contents that is low signal intens ity on T2 and hyperintense on T1. There is a 3.4 x 2.6 x 5.2 cm polypoid solid mass in the posterior wall of the cyst (12/18). Endometrium is distended with blood and measures 1.2 cm. Blood products are low signal intensity on T2 and demonstrate T1 shortening. Right ovary and adnexa: Right ovary is normal. There is a right hematosalpinx with blood products in a dilated right fallopian tube that measures 1.1 cm in transverse diameter (). Left ovary and adnexa: There is a 2.2 cm benign appearing cyst in the left ovary. Negative for an abnormal left adnexal mass. There are surgical clips in the left adnexa that create focal magnetic susceptibility artifact. Free fluid: Negative for significant free pelvic fluid. There is generalized edema in the extraperitoneal fat of the pelvis and extends into bilateral posterior pararenal spaces in the lower abdomen. REMAINING PELVIS: Bladder: Collapsed around a Saavedra catheter. The bladder is displaced anterior by the mass centered on the cervix. Bowel: Normal. Vasculature: Patent. Lymph Nodes: No enlarged lymph nodes. Abdominal Wall: Normal. Musculoskeletal: There are degenerative changes in the lumbar spine. No suspicious bone lesions are identified. Additional comment: None. IMPRESSION: 1. 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 Tissue is required for definitive diagnosis. 2. Obstruction of the cervix by the mass with hematometra and a right hematosalpinx. 3. Generalized edema in the extraperitoneal fat of the pelvis as described. RPTAT: HCTS Physician Dayana Date Time Electronically viewed and signed by Physician Dayana on 01/24/2019 20:18 CS/ CC: SERGE MARY [id number] PROCEDURE: US Pelvis. CLINICAL INDICATION: pelvic pain TECHNIQUE: Multiple sonographic images of the pelvis were obtained utilizing transabdominal and endovaginal technique. The images were reviewed on a PACS workstation. COMPARISON: 01/24/2019 FINDINGS: The uterus is not well seen. The endometrium measures 7 mm. There is a large hypoechoic mass in the lower pelvis, measuring 14.1 x 8.9 x 10 cm. The right ovary was not visualized. The left ovary measures 3.7 x 2.9 x 3.4 cm. There is a 2.5 cm simple cyst. There is normal Doppler flow. No free fluid is present within the pelvis. RPTAT: AA IMPRESSION: Large solid mass in the pelvis. A possible ovarian mass cannot be excluded. Surgical consultation and pelvic MRI is recommended. Medications Medication Current Medications Dextrose/Sodium Chloride 1,000 ml @ 100 mls/hr Q10H IV Last administered on 01/26/19at 11:46; Admin Dose 100 MLS/HR; Start 01/24/19 at 05:55 IV Flush (NS 3 ml) 3 ml PER PROTOCOL IV ; Start 01/24/19 at 06:00 Ondansetron HCl (Zofran Inj) 4 mg Q6H PRN IV NAUSEA/VOMITING Last administered on 01/25/19at 10:19; Admin Dose 4 MG; Start 01/24/19 at 06:00 Acetaminophen (Tylenol Tab) 650 mg Q6H PRN PO .PAIN 1-3 OR TEMP; Start 01/24/19 at 06:00 Acetaminophen/ Hydrocodone Bitart ([place] (5/325)) 1 tab Q6H PRN PO MILD PAIN LEVEL 1-3; Start 01/24/19 at 06:00 Acetaminophen/ Hydrocodone Bitart ([place] (5/325)) 2 tab Q6H PRN PO MODERATE PAIN LEVEL 4-6; Start 01/24/19 at 06:00 Heparin Sodium (Porcine) (Heparin (5000 Units/1ml)) 5,000 unit Q12 SC Last administered on 01/25/19at 08:24; Admin Dose 5,000 UNIT; Start 01/24/19 at 09:00; Status Hold Albuterol/ Ipratropium (Duoneb) 3 ml Q2H RESP THERAPY PRN HHN SHORTNESS OF BREATH; Start 01/24/19 at 06:00 Ceftriaxone Sodium 50 ml @ 100 mls/hr DAILY IVPB Last administered on 01/26/19at 08:46; Admin Dose 100 MLS/HR; Start 01/24/19 at 09:00 Metoprolol Tartrate (Lopressor) 25 mg Q8H PO Last administered on 01/26/19at 00:27; Admin Dose 25 MG; Start 01/24/19 at 17:00 Hydromorphone HCl (Dilaudid BAG LOADER) 0.2MG DOSE 10... Q4PCA IV ; Start 01/26/19 at 12:00 Lorazepam (Ativan) 0.5 mg Q8H PRN IV ANXIETY; Start 01/26/19 at 12:30 ABDULAZIZ ROCK MD Jan 26, 2019 12:54
[2019-01-26] MEDS: HYDROmorphONE 0.2 MG/ML PCA IV SCH (13:02)
[2019-01-26] MEDS ORDERED: LIDOCAINE 1% (MDV) 20 ML INJ ONE (15:21)
[2019-01-26] MEDS ORDERED: MIDAZOLAM 1 MG/ML 2 ML INJ ONE ×2 (16:09→18:05)
[2019-01-26] MEDS ORDERED: FENTAnyl 50 MCG/ML VIAL ONE ×2 (16:09→18:04)
[2019-01-26] MEDS ORDERED: ONDANSETRON 4 MG INJ ONE (16:59)
--- NOTE | 2019-01-26 18:30 | PN ---
Date/Time of Note Date/Time of Note DATE: 01/26/19 TIME: 18:27 Assessment/Plan VTE Prophylaxis Risk score (from Ns)>0 risk: 3 SCD applied (from Ns): Yes Pharmacological prophylaxis: NA/contraindicated Pharm contraindication: bleeding Lines/Catheters IV Catheter Type (from Nrsg): Saline Lock Urinary Cath still in place: Yes Reason Cath still needed: urinary retention Assessment/Plan Hospital Course 48 y/o F who presented with pelvic pain and dysuria for the past 4 days currently managed as follows: 1. Pelvic mass, -MRI confirms 13 x 8 x 9 cm pelvic mass obstructing both ureters, tumor markers neg -Gynonc not available for 2 weeks -per laborist, needs gynonc -mass causing obstructive renal failure and severe pain -we will try to transfer for higher level of care, if unsuccessful, we will stabilize patient and once patient is stable, will discharge for outpatient mass removal 2. UTI -empiric abx, cultures negative so far 3. Acute renal failure, hematuria and urinary retention: 2/2 pressure from #1 -appreciate urology input, for Nephrostomy tube placement today -monitor electrolytes closely 4. accelerated HTN: improved -continue current meds and titrate for optimal control further interventions per course. Result Diagram: 01/26/19 04201/26/19 0422 Results 24hrs Laboratory Tests Test 01/26/19 04:21 01/26/19 04:22 White Blood Count 12.4 H Red Blood Count 4.19 L Hemoglobin 11.8 L Hematocrit 37.7 Mean Corpuscular Volume 90.0 Mean Corpuscular Hemoglobin 28.2 L Mean Corpuscular Hemoglobin Concent 31.3 L Red Cell Distribution Width 13.9 Platelet Count 348 Mean Platelet Volume 9.7 Immature Granulocytes % 0.400 Neutrophils % 77.1 H Lymphocytes % 13.4 L Monocytes % 7.2 Eosinophils % 1.7 Basophils % 0.2 Nucleated Red Blood Cells % 0.0 Immature Granulocytes # 0.050 H Neutrophils # 9.6 H Lymphocytes # 1.7 Monocytes # 0.9 Eosinophils # 0.2 Basophils # 0.0 Nucleated Red Blood Cells # 0.0 Sodium Level 131 L Potassium Level 4.5 Chloride Level 101 Carbon Dioxide Level 20 L Anion Gap 10 Blood Urea Nitrogen 32 #H Creatinine 5.36 #H Est Glomerular Filtrat Rate mL/min 8 L Glucose Level 101 Calcium Level 7.6 L Subjective 24 Hr Interval Summary Free Text/Dictation patient is still in a lot of pain, we have changed regimen to dilaudid CROZE MACHINE OPERATOR Planned for nephrostomy tube placement later today Exam/Review of Systems Exam Vitals Vital Signs Date Temp Pulse Resp B/P (MAP) Pulse Ox O2 O2 Flow FiO2 Time Delivery Rate 01/26/19 16 13:03 01/26/19 98.1 89 109/56 99 Room Air 07:30 (73) Intake and Output 01/25/19 01/25/19 01/26/19 1515:00 23:00 07:00 IntakeIntake Total 1020 ml 500 ml 1000 ml OutputOutput Total 40 ml 80 ml BalanceBalance 1020 ml 460 ml 920 ml Constitutional: alert, oriented, distress Psych: anxiety Head: normocephalic Neck: supple Respiratory: clear to auscultation Cardiovascular: regular rate and rhythm Gastrointestinal: soft, distended, tender Neurological: nl mental status Results Results 24hrs Laboratory Tests Test 01/26/19 04:21 01/26/19 04:22 White Blood Count 12.4 H Red Blood Count 4.19 L Hemoglobin 11.8 L Hematocrit 37.7 Mean Corpuscular Volume 90.0 Mean Corpuscular Hemoglobin 28.2 L Mean Corpuscular Hemoglobin Concent 31.3 L Red Cell Distribution Width 13.9 Platelet Count 348 Mean Platelet Volume 9.7 Immature Granulocytes % 0.400 Neutrophils % 77.1 H Lymphocytes % 13.4 L Monocytes % 7.2 Eosinophils % 1.7 Basophils % 0.2 Nucleated Red Blood Cells % 0.0 Immature Granulocytes # 0.050 H Neutrophils # 9.6 H Lymphocytes # 1.7 Monocytes # 0.9 Eosinophils # 0.2 Basophils # 0.0 Nucleated Red Blood Cells # 0.0 Sodium Level 131 L Potassium Level 4.5 Chloride Level 101 Carbon Dioxide Level 20 L Anion Gap 10 Blood Urea Nitrogen 32 #H Creatinine 5.36 #H Est Glomerular Filtrat Rate mL/min 8 L Glucose Level 101 Calcium Level 7.6 L Medications Medication Current Medications Dextrose/Sodium Chloride 1,000 ml @ 100 mls/hr Q10H IV Last administered on 01/26/19at 11:46; Admin Dose 100 MLS/HR; Start 01/24/19 at 05:55 IV Flush (NS 3 ml) 3 ml PER PROTOCOL IV ; Start 01/24/19 at 06:00 Ondansetron HCl (Zofran Inj) 4 mg Q6H PRN IV NAUSEA/VOMITING Last administered on 01/25/19at 10:19; Admin Dose 4 MG; Start 01/24/19 at 06:00 Acetaminophen (Tylenol Tab) 650 mg Q6H PRN PO .PAIN 1-3 OR TEMP; Start 01/24/19 at 06:00 Acetaminophen/ Hydrocodone Bitart ([place] (5/325)) 1 tab Q6H PRN PO MILD PAIN LEVEL 1-3; Start 01/24/19 at 06:00 Acetaminophen/ Hydrocodone Bitart ([place] (5/325)) 2 tab Q6H PRN PO MODERATE PAIN LEVEL 4-6; Start 01/24/19 at 06:00 Heparin Sodium (Porcine) (Heparin (5000 Units/1ml)) 5,000 unit Q12 SC Last administered on 01/25/19at 08:24; Admin Dose 5,000 UNIT; Start 01/24/19 at 09:00; Status Hold Albuterol/ Ipratropium (Duoneb) 3 ml Q2H RESP THERAPY PRN HHN SHORTNESS OF BREATH; Start 01/24/19 at 06:00 Ceftriaxone Sodium 50 ml @ 100 mls/hr DAILY IVPB Last administered on 01/26/19at 08:46; Admin Dose 100 MLS/HR; Start 01/24/19 at 09:00 Metoprolol Tartrate (Lopressor) 25 mg Q8H PO Last administered on 01/26/19at 0 0:27; Admin Dose 25 MG; Start 01/24/19 at 17:00 Hydromorphone HCl (Dilaudid CROZE MACHINE OPERATOR) 0.2MG DOSE 10... Q4PCA IV Last administered on 01/26/19at 13:02; Admin Dose 6 MG; Start 01/26/19 at 12:00 Lorazepam (Ativan) 0.5 mg Q8H PRN IV ANXIETY; Start 01/26/19 at 12:30 SERGE MARY Jan 26, 2019 18:30
--- NOTE | 2019-01-26 21:03 | CONS ---
Consult Date/Type/Reason Admit Date/Time Jan 24, 2019 at 02:22 Initial Consult Date 01/24/19 Type of Consultation: Urology Reason for Consultation Pelvic mass and acute kidney injury. Requesting Provider: SERGE MARY Date/Time of Note DATE: 01/26/19 TIME: 20:59 Subjective Patient complains of abdominal pain Objective Vitals Vital Signs Date Temp Pulse Resp B/P (MAP) Pulse Ox O2 O2 Flow FiO2 Time Delivery Rate 01/26/19 98.3 106 20 131/75 96 Room Air 20:26 (93) Intake and Output 01/25/19 01/25/19 01/26/19 1515:00 23:00 07:00 IntakeIntake Total 1020 ml 500 ml 1000 ml OutputOutput Total 40 ml 80 ml BalanceBalance 1020 ml 460 ml 920 ml Exam Lower abdominal pain. Saavedra catheter draining small amount of urine. Results/Medications Result Diagram: 01/26/19 0421 01/26/19 0422 Results 24 hrs Laboratory Tests Test 01/26/19 04:21 01/26/19 04:22 White Blood Count 12.4 H Red Blood Count 4.19 L Hemoglobin 11.8 L Hematocrit 37.7 Mean Corpuscular Volume 90.0 Mean Corpuscular Hemoglobin 28.2 L Mean Corpuscular Hemoglobin Concent 31.3 L Red Cell Distribution Width 13.9 Platelet Count 348 Mean Platelet Volume 9.7 Immature Granulocytes % 0.400 Neutrophils % 77.1 H Lymphocytes % 13.4 L Monocytes % 7.2 Eosinophils % 1.7 Basophils % 0.2 Nucleated Red Blood Cells % 0.0 Immature Granulocytes # 0.050 H Neutrophils # 9.6 H Lymphocytes # 1.7 Monocytes # 0.9 Eosinophils # 0.2 Basophils # 0.0 Nucleated Red Blood Cells # 0.0 Sodium Level 131 L Potassium Level 4.5 Chloride Level 101 Carbon Dioxide Level 20 L Anion Gap 10 Blood Urea Nitrogen 32 #H Creatinine 5.36 #H Est Glomerular Filtrat Rate mL/min 8 L Glucose Level 101 Calcium Level 7.6 L Home Meds Active Scripts Ibuprofen* (Motrin*) 600 Mg Tab, 600 MG PO Q6H PRN for PAIN AND OR ELEVATED TEMP, #30 Prov:LUCY CABALLERO NP 05/30/15 Reported Medications Naproxen* (Naproxen*) 220 Mg Capsule, 220 MG PO TID, CAP 01/24/19 Medroxyprogesterone Acetate* (Provera*) Unknown Strength Tablet, PO DAILY, TAB 01/24/19 Discontinued Reported Medications [none] Unknown Strength No Conflict Check 05/30/15 Discontinued Scripts Hydrocodone Bit-Acetaminophen* ([place]*) 5-325 Mg Tab, 1 TAB PO Q6 PRN for SEVERE PAIN LEVEL 7-10, #20 TAB Prov:LUCY CABALLERO NP 05/30/15 Triamcinolone Acetonide* (Kenalog*) 0.5%-15GM Cr, 1 APPLIC TOP BID, #1 EA Prov:LUCY CABALLERO FORESTRY AIDE 03/13/15 Hydroxyzine Hcl* (Hydroxyzine Hcl*) 25 Mg Tablet, 25 MG PO Q8H PRN for ITCHING, #30 TAB Prov:LUCY CABALLERO NP 03/13/15 Cephalexin* (Keflex*) 500 Mg Capsule, 500 MG PO Q6 for 10 Days, CAP Prov:LUCY CABALLERO FORESTRY AIDE 03/13/15 Medications Current Medications Dextrose/Sodium Chloride 1,000 ml @ 100 mls/hr Q10H IV Last administered on 01/26/19at 11:46; Admin Dose 100 MLS/HR; Start 01/24/19 at 05:55 IV Flush (NS 3 ml) 3 ml PER PROTOCOL IV ; Start 01/24/19 at 06:00 Ondansetron HCl (Zofran Inj) 4 mg Q6H PRN IV NAUSEA/VOMITING Last administered on 01/25/19at 10:19; Admin Dose 4 MG; Start 01/24/19 at 06:00 Acetaminophen (Tylenol Tab) 650 mg Q6H PRN PO .PAIN 1-3 OR TEMP; Start 01/24/19 at 06:00 Acetaminophen/ Hydrocodone Bitart ([place] (5/325)) 1 tab Q6H PRN PO MILD PAIN LEVEL 1-3; Start 01/24/19 at 06:00 Acetaminophen/ Hydrocodone Bitart ([place] (5/325)) 2 tab Q6H PRN PO MODERATE PAIN LEVEL 4-6; Start 01/24/19 at 06:00 Heparin Sodium (Porcine) (Heparin (5000 Units/1ml)) 5,000 unit Q12 SC Last administered on 01/25/19at 08:24; Admin Dose 5,000 UNIT; Start 01/24/19 at 09:00; Status Hold Albuterol/ Ipratropium (Duoneb) 3 ml Q2H RESP THERAPY PRN HHN SHORTNESS OF BREATH; Start 01/24/19 at 06:00 Ceftriaxone Sodium 50 ml @ 100 mls/hr DAILY IVPB Last administered on 01/26/19at 08:46; Admin Dose 100 MLS/HR; Start 01/24/19 at 09:00 Metoprolol Tartrate (Lopressor) 25 mg Q8H PO Last administered on 01/26/19at 00:27; Admin Dose 25 MG; Start 01/24/19 at 17:00 Hydromorphone HCl (Dilaudid ADMINISTRATIVE COURT JUSTICE) 0.2MG DOSE 10... Q4PCA IV Last administered on 01/26/19at 13:02; Admin Dose 6 MG; Start 01/26/19 at 12:00 Lorazepam (Ativan) 0.5 mg Q8H PRN IV ANXIETY; Start 01/26/19 at 12:30 Imaging PROCEDURE: CT guided nephrostomy CLINICAL INDICATION: Increasing creatinine TECHNIQUE: Informed consent was obtained. The procedure, risks, benefits, complications and alternatives were explained to the patient or the patient's family. Risks including bleeding and infection were explained. The patient or the patient's family understood and was willing to proceed. A procedural pause was performed. The patient's name, date of , and procedure to be performed were verified. One or more of the following dose reduction techniques were used: Automated exposure control, adjustment of the mA and/or kV according to patient size, use of iterative reconstruction technique. DICOM images are available. The pre-procedure images demonstrate mild hydronephrosis and significant bilateral perinephric stranding and fluid. Using local anesthetic, sterile technique and CT guidance, a 19-gauge needle was advanced into the right renal collecting system. However, no significant fluid was aspirated. The patient was also uncooperative. Therefore, after 2 attempts, the procedure was terminated, and the catheter and wire was removed. COMPARISON: 01/24/2019 FINDINGS: Final images demonstrate stable perinephric stranding and significant fluid. Specimens: None Blood loss: 5 ml Complications: None. Clinical Care Manager: None. Anesthesia: Local and moderate sedation. Graft/Implant: None IMPRESSION: Unsuccessful right nephrostomy secondary to lack of significant hydronephrosis as well as patient being uncooperative. The patient was stable and in good condition at the conclusion of the procedure. RPTAT: QQ Physician Zach Date Time Assessment/Plan Hospital Course (Demo Recall) 48-year-old female presented to the emergency room was severe abdominal pain. She underwent a CT scan of the abdomen and pelvis and that showed: 1. Complex circumscribed cystic mass located in the central pelvis measuring at least 11 x 11 x 10 cm likely of ovarian origin. Further evaluation with pelvic ultrasound and ultimately MRI recommended. 2. Mild right sided hydroureternephrosis secondary to a several pelvic complex cystic mass. 3. Cystic lesion of the right inferior renal pole measuring 11 x 11 x 10 cm. Further evaluation with renal ultrasound is recommended. 4. Severe disc height loss and anterior spinal degenerative enthesopathy changes involving L4-5. Renal ultrasound: Mild bilateral hydronephrosis. 2.1 cm simple right renal cyst. 13.9 cm potential soft tissue mass in the midline of the pelvis that likely corresponds to the pelvic mass seen on prior CT. Incidental note made of cholelithiasis Pelvic ultrasound: Large solid mass in the pelvis. A possible ovarian mass cannot be excluded. Surgical consultation and pelvic MRI is recommended. Patient states that she has been menopausal for about 2 years and she has been spotting on and off for the past 6 months. She made an appointment with [facility] on January 04 and she went to that appointment but they could not do much because her vagina is too small and there was no place to do the ultrasound. She is supposed to go back to them in February for additional work-up. Presently the patient has an indwelling Saavedra catheter and that is draining blood-tinged urine and that is because of the undue pelvic ultrasound. The ureters are obstructed because of the pressure on the bladder by the mass. The patient needs GROUP FITNESS DEPARTMENT HEAD consultation for possible excision removal of the pelvic mass. She underwent repeated ultrasound today and that showed mild right hydronephrosis. I did talk with the radiologist and he attempted to insert a r ight nephrostomy tube but that was not successful. If her creatinine continues to increase then I may have to try to do cystoscopy and insert JJ stents for her. But most importantly this patient should be seen by the GROUP FITNESS DEPARTMENT HEAD oncologist and if that is not available may be she should be transferred to [facility] as she has been there before . KEEGAN ALBERTO MD Jan 26, 2019 21:03
[2019-01-27] MEDS: METOPROLOL 25 MG TAB PO SCH ×3 (01:00→17:43)
[2019-01-27] MEDS: DEXTROSE 5%-0.45% NACL 1,000 ML IV SCH ×2 (03:27→15:18)
[2019-01-27 03:31] VITALS: BP 106/72; PULSE 96; RESP 17
--- NOTE | 2019-01-27 07:21 | PN ---
Date/Time of Note Date/Time of Note DATE: 01/27/19 TIME: 07:19 Assessment/Plan VTE Prophylaxis Risk score (from Ns)>0 risk: 3 SCD applied (from Ns): Yes Pharmacological prophylaxis: NA/contraindicated Pharm contraindication: bleeding Lines/Catheters IV Catheter Type (from Nrsg): Peripheral IV Urinary Cath still in place: Yes Reason Cath still needed: urinary retention Assessment/Plan Hospital Course S: Nephrosomy tube placement was uinsuccessful yesterday, patient is very unhappy about current events, spoke with her nephew and her for a long time. Also notified administration about current issues and placed outside call to Dr. Hernandez patient also complaining of pressure on kidneys. Has improved urine outout, but still having hematuria and now with vaginal bleeding O : Constitutional: alert, oriented, distress Psych: anxiety Head: normocephalic Neck: supple Respiratory: clear to auscultation Cardiovascular: regular rate and rhythm Gastrointestinal: soft, distended, tender Neurological: nl mental status assessment and plan: 48 y/o F who presented with pelvic pain and dysuria for the past 4 days currently managed as follows: 1. Pelvic mass, with hematuria and vaginal bleeding -MRI confirms 13 x 8 x 9 cm pelvic mass obstructing both ureters, tumor markers neg -Gynonc not available for 2 weeks -per laborist, needs gynonc -mass causing obstructive renal failure and severe pain -working on transfer for higher level of care -on dilaudid STRATEGY ANALYST for intractable pain with improved control -vaginal bleeding likely from repeated pelvic exam in the last 2 days, small volume 2. UTI -empiric abx, cultures negative so far 3. Acute renal failure, hematuria and urinary retention: 2/2 pressure from #1 -appreciate urology input, for Nephrostomy tube placement attempted and unsuccessful 01/26/19 -remains with tomas and mild hematuria -f/u further recs per urology -monitor electrolytes closely 4. accelerated HTN: improved -continue current meds and titrate for optimal control further interventions per course. Result Diagram: 01/26/1942001/26/19421 Exam/Review of Systems Exam Vitals Vital Signs Date Temp Pulse Resp B/P (MAP) Pulse Ox O2 O2 Flow FiO2 Time Delivery Rate 01/27/19 16 05:00 01/27/19 98.6 96 106/72 96 Room Air 03:31 (83) Intake and Output 01/26/19 01/26/19 01/27/19 1515:00 23:00 07:00 IntakeIntake Total 550 ml 300 ml 850 ml OutputOutput Total 500 ml BalanceBalance 550 ml 300 ml 350 ml Medications Medication Current Medications IV Flush (NS 3 ml) 3 ml PER PROTOCOL IV ; Start 01/24/19 at 06:00 Ondansetron HCl (Zofran Inj) 4 mg Q6H PRN IV NAUSEA/VOMITING Last administered on 01/25/19at 10:19; Admin Dose 4 MG; Start 01/24/19 at 06:00 Acetaminophen (Tylenol Tab) 650 mg Q6H PRN PO .PAIN 1-3 OR TEMP; Start 01/24/19 at 06:00 Acetaminophen/ Hydrocodone Bitart ([place] (5/325)) 1 tab Q6H PRN PO MILD PAIN LEVEL 1-3; Start 01/24/19 at 06:00 Acetaminophen/ Hydrocodone Bitart ([place] (5/325)) 2 tab Q6H PRN PO MODERATE PAIN LEVEL 4-6; Start 01/24/19 at 06:00 Heparin Sodium (Porcine) (Heparin (5000 Units/1ml)) 5,000 unit Q12 SC Last administered on 01/25/19at 08:24; Admin Dose 5,000 UNIT; Start 01/24/19 at 09:00; Status Hold Albuterol/ Ipratropium (Duoneb) 3 ml Q2H RESP THERAPY PRN HHN SHORTNESS OF BREATH; Start 01/24/19 at 06:00 Ceftriaxone Sodium 50 ml @ 100 mls/hr DAILY IVPB Last administered on 01/26/19at 08:46; Admin Dose 100 MLS/HR; Start 01/24/19 at 09:00 Metoprolol Tartrate (Lopressor) 25 mg Q8H PO Last administered on 01/26/19at 00:27; Admin Dose 25 MG; Start 01/24/19 at 17:00 Hydromorphone HCl (Dilaudid STRATEGY ANALYST) 0.2MG DOSE 10... Q4PCA IV Last administered on 01/26/19at 13:02; Admin Dose 6 MG; Start 01/26/19 at 12:00 Lorazepam (Ativan) 0.5 mg Q8H PRN IV ANXIETY; Start 01/26/19 at 12:30 SERGE MARY Jan 27, 2019 07:21
[2019-01-27 07:59] VITALS: BP 116/67; PULSE 98; RESP 18
[2019-01-27] MEDS: CEFTRIAXONE 1 GM/50 ML (PMX) 50 ML IVPB SCH (09:02)
[2019-01-27] MEDS: ACETAMINOPHEN 325 MG TAB PO PRN (09:08)
[2019-01-27 15:20] VITALS: BP 118/67; PULSE 96; RESP 18
--- NOTE | 2019-01-27 18:08 | CONS ---
Consult Date/Type/Reason Admit Date/Time Jan 24, 2019 at 02:22 Initial Consult Date 01/24/19 Type of Consultation: Urology Reason for Consultation Pelvic mass causing bilateral ureteral obstruction Requesting Provider: SERGE MARY Date/Time of Note DATE: 01/27/19 TIME: 18:05 Subjective Patient continues to complain of pain in the pelvic area. Objective Vitals Vital Signs Date Temp Pulse Resp B/P (MAP) Pulse Ox O2 O2 Flow FiO2 Time Delivery Rate 01/27/19 98.6 96 18 118/67 96 Room Air 15:20 (84) Intake and Output 01/26/19 01/26/19 01/27/19 1515:00 23:00 07:00 IntakeIntake Total 550 ml 300 ml 850 ml OutputOutput Total 500 ml BalanceBalance 550 ml 300 ml 350 ml Exam She is making more urine and the urine now is clear but she states that she has some vaginal bleeding. Results/Medications Result Diagram: 01/26/1942001/26/19 0422 Results 24 hrs Laboratory Tests Test 01/27/19 07:50 Phosphorus Level 7.3 H Magnesium Level 1.9 Total Bilirubin 0.2 Direct Bilirubin 0.00 Indirect Bilirubin 0.2 Aspartate Amino Transf (AST/SGOT) 17 Alanine Aminotransferase (ALT/SGPT) 17 Alkaline Phosphatase 54 Total Protein 5.8 L Albumin 2.8 L Home Meds Active Scripts Ibuprofen* (Motrin*) 600 Mg Tab, 600 MG PO Q6H PRN for PAIN AND OR ELEVATED TEMP, #30 Prov:LUCY CABALLERO NP 05/30/15 Reported Medications Naproxen* (Naproxen*) 220 Mg Capsule, 220 MG PO TID, CAP 01/24/19 Medroxyprogesterone Acetate* (Provera*) Unknown Strength Tablet, PO DAILY, TAB 01/24/19 Discontinued Reported Medications [none] Unknown Strength No Conflict Check 05/30/15 Discontinued Scripts Hydrocodone Bit-Acetaminophen* ([place]*) 5-325 Mg Tab, 1 TAB PO Q6 PRN for SEVERE PAIN LEVEL 7-10, #20 TAB Prov:LUCY CABALLERO NP 05/30/15 Triamcinolone Acetonide* (Kenalog*) 0.5%-15GM Cr, 1 APPLIC TOP BID, #1 EA Prov:LUCY CABALLERO NP 03/13/15 Hydroxyzine Hcl* (Hydroxyzine Hcl*) 25 Mg Tablet, 25 MG PO Q8H PRN for ITCHING, #30 TAB Prov:LUCY CABALLERO FINE SANDER 03/13/15 Cephalexin* (Keflex*) 500 Mg Capsule, 500 MG PO Q6 for 10 Days, CAP Prov:LUCY CABALLERO NP 03/13/15 Medications Current Medications IV Flush (NS 3 ml) 3 ml PER PROTOCOL IV ; Start 01/24/19 at 06:00 Ondansetron HCl (Zofran Inj) 4 mg Q6H PRN IV NAUSEA/VOMITING Last administered on 01/25/19at 10:19; Admin Dose 4 MG; Start 01/24/19 at 06:00 Acetaminophen (Tylenol Tab) 650 mg Q6H PRN PO .PAIN 1-3 OR TEMP Last administered on 01/27/19at 09:08; Admin Dose 650 MG; Start 01/24/19 at 06:00 Acetaminophen/ Hydrocodone Bitart ([place] (5/325)) 1 tab Q6H PRN PO MILD PAIN LEVEL 1-3; Start 01/24/19 at 06:00 Acetaminophen/ Hydrocodone Bitart ([place] (5/325)) 2 tab Q6H PRN PO MODERATE PAIN LEVEL 4-6; Start 01/24/19 at 06:00 Heparin Sodium (Porcine) (Heparin (5000 Units/1ml)) 5,000 unit Q12 SC Last administered on 01/25/19at 08:24; Admin Dose 5,000 UNIT; Start 01/24/19 at 09:00; Status Hold Albuterol/ Ipratropium (Duoneb) 3 ml Q2H RESP THERAPY PRN HHN SHORTNESS OF BREATH; Start 01/24/19 at 06:00 Ceftriaxone Sodium 50 ml @ 100 mls/hr DAILY IVPB Last administered on 01/27/19at 09:02; Admin Dose 100 MLS/HR; Start 01/24/19 at 09:00 Metoprolol Tartrate (Lopressor) 25 mg Q8H PO Last administered on 01/27/19at 17:43; Admin Dose 25 MG; Start 01/24/19 at 17:00 Hydromorphone HCl (Dilaudid ASSISTANT PROFESSOR OF SPANISH) 0.2MG DOSE 10... Q4PCA IV Last administered on 01/26/19at 13:02; Admin Dose 6 MG; Start 01/26/19 at 12:00 Lorazepam (Ativan) 0.5 mg Q8H PRN IV ANXIETY; Start 01/26/19 at 12:30 Dextrose/Sodium Chloride 1,000 ml @ 80 mls/hr [id number] IV Last administered on 01/27/19at 15:18; Admin Dose 80 MLS/HR; Start 01/27/19 at 15:00 Assessment/Plan Hospital Course (Demo Recall) 48-year-old female presented to the emergency room was severe abdominal pain. She underwent a CT scan of the abdomen and pelvis and that showed: 1. Complex circumscribed cystic mass located in the central pelvis measuring at least 11 x 11 x 10 cm likely of ovarian origin. Further evaluation with pelvic ultrasound and ultimately MRI recommended. 2. Mild right sided hydroureternephrosis secondary to a several pelvic complex cystic mass. 3. Cystic lesion of the right inferior renal pole measuring 11 x 11 x 10 cm. Further evaluation with renal ultrasound is recommended. 4. Severe disc height loss and anterior spinal degenerative enthesopathy changes involving L4-5. Renal ultrasound: Mild bilateral hydronephrosis. 2.1 cm simple right renal cyst. 13.9 cm potential soft tissue mass in the midline of the pelvis that likely corresponds to the pelvic mass seen on prior CT. Incidental note made of cholelithiasis Pelvic ultrasound: Large solid mass in the pelvis. A possible ovarian mass cannot be excluded. Surgical consultation and pelvic MRI is recommended. Patient states that she has been menopausal for about 2 years and she has been spotting on and off for the past 6 months. She made an appointment with [facility] on January 04 and she went to that appointment but they could not do much because her vagina is too small and there was no place to do the ultrasound. She is supposed to go back to them in February for additional work-up. Presently the patient has an indwelling Saavedra catheter and that is draining blood-tinged urine and that is because of the undue pelvic ultrasound. The ureters are obstructed because of the pressure on the bladder by the mass. The patient needs BUOY TENDER consultation for possible excision removal of the pelvic mass. Attempts to insert a right nephrostomy tube was not successful. The case liner has been working on transferring her to a higher level of care. Patient just told me that Dr. Mendoza did see her and told her that she is going to operate on her. KEEGAN ALBERTO MD Jan 27, 2019 18:08
[2019-01-27 19:10] VITALS: BP 120/73; PULSE 90; RESP 20
--- NOTE | 2019-01-27 21:58 | QN ---
Documentation Comment spoke to Dr Jovon anderson regarding patient situation and received rec by DR Hill reviewed record and plan to do exploratory lap today evening while waiting surgery spot discuss with dept chair who strongly [facility] Dr Freeman requested to assist to transfer patient to nursing relay shop supervisor on 01/27/19 evening informed patient reson for changing KEVIN Allen MD Jan 27, 2019 21:58
[2019-01-28 02:05] VITALS: BP 124/77; PULSE 90; RESP 20
[2019-01-28] MEDS: METOPROLOL 25 MG TAB PO SCH ×3 (02:41→17:25)
[2019-01-28] MEDS: DEXTROSE 5%-0.45% NACL 1,000 ML IV SCH ×2 (02:46→17:02)
[2019-01-28 08:22] VITALS: BP 136/75; PULSE 90; RESP 18
[2019-01-28] MEDS: CEFTRIAXONE 1 GM/50 ML (PMX) 50 ML IVPB SCH (09:09)
--- NOTE | 2019-01-28 10:54 | PN ---
Date/Time of Note Date/Time of Note DATE: 01/28/19 TIME: 10:51 Assessment/Plan VTE Prophylaxis Risk score (from Nsg)>0 risk: 1 SCD applied (from Nsg): Yes Pharmacological prophylaxis: NA/contraindicated Pharm contraindication: bleeding Lines/Catheters IV Catheter Type (from Nrsg): Peripheral IV Urinary Cath still in place: Yes Reason Cath still needed: urinary retention Assessment/Plan Assessment/Plan 48 y/o F who presented with pelvic pain and dysuria for the past 4 days; found to have new large pelvic mass with vaginal bleed. 1. Pelvic mass, with hematuria and vaginal bleeding -MRI confirms 13 x 8 x 9 cm pelvic mass obstructing both ureters, tumor markers neg -Gynonc not available for 2 weeks -per laborist, needs gynonc -mass causing obstructive renal failure and severe pain -working on transfer for higher level of care -on dilaudid SUPERVISOR BROADLOOM for intractable pain with improved control -vaginal bleeding likely from repeated pelvic exam in the last 2 days, small volume 2. UTI -empiric abx, cultures negative 3. Acute renal failure, hematuria and urinary retention: 2/2 pressure from #1 -appreciate urology input, for Nephrostomy tube placement attempted and unsuccessful 01/26/19 -remains with tomas and mild hematuria -f/u further recs per urology -Worsening MARIBELL. Will consult nephrology. 4. accelerated HTN: improved -continue current meds and titrate for optimal control Dispo: Pending transfer to higher level of care for block cutter-onc evaluation. Result Diagram: 01/28/198 01/28/19427 Subjective 24 Hr Interval Summary Free Text/Dictation No acute overnight events. Patient continues to have vaginal bleed. Tolerating diet, ambulating. Exam/Review of Systems Exam Vitals Vital Signs Date Temp Pulse Resp B/P (MAP) Pulse Ox O2 O2 Flow FiO2 Time Delivery Rate 01/28/19 98.4 90 18 136/75 97 08:22 (95) 01/28/19 Room Air 02:05 Intake and Output 01/27/19 01/27/19 01/28/19 1515:00 23:00 07:00 IntakeIntake Total 900 ml 420 ml 1180 ml OutputOutput Total 800 ml BalanceBalance 900 ml -380 ml 1180 ml Exam Constitutional: alert, oriented, no distress Head: normocephalic, moist mucous membranes. Neck: supple Respiratory: clear to auscultation Cardiovascular: regular rate and rhythm Gastrointestinal: soft, slightly distended, tender to palpation throughout. : Tomas with clear yellow urine. Oozing vaginal bleed. Results Results 24hrs Laboratory Tests Test 01/28/19 04:28 White Blood Count 11.9 H Red Blood Count 3.84 L Hemoglobin 11.0 L Hematocrit 33.7 L Mean Corpuscular Volume 87.8 Mean Corpuscular Hemoglobin 28.6 L Mean Corpuscular Hemoglobin Concent 32.6 Red Cell Distribution Width 13.9 Platelet Count 381 Mean Platelet Volume 9.7 Immature Granulocytes % 0.500 H Neutrophils % 83.4 H Lymphocytes % 7.1 L Monocytes % 7.6 Eosinophils % 1.2 Basophils % 0.2 Nucleated Red Blood Cells % 0.0 Immature Granulocytes # 0.060 H Neutrophils # 9.9 H Lymphocytes # 0.8 Monocytes # 0.9 Eosinophils # 0.1 Basophils # 0.0 Nucleated Red Blood Cells # 0.0 Sodium Level 134 L Potassium Level 4.9 Chloride Level 107 Carbon Dioxide Level 19 L Anion Gap 8 Blood Urea Nitrogen 34 H Creatinine 5.56 H Est Glomerular Filtrat Rate mL/min 8 L Glucose Level 133 Calcium Level 8.2 L Medications Medication Current Medications IV Flush (NS 3 ml) 3 ml PER PROTOCOL IV ; Start 01/24/19 at 06:00 Ondansetron HCl (Zofran Inj) 4 mg Q6H PRN IV NAUSEA/VOMITING Last administered on 01/25/19at 10:19; Admin Dose 4 MG; Start 01/24/19 at 06:00 Acetaminophen (Tylenol Tab) 650 mg Q6H PRN PO .PAIN 1-3 OR TEMP Last administered on 01/27/19at 09:08; Admin Dose 650 MG; Start 01/24/19 at 06:00 Acetaminophen/ Hydrocodone Bitart ([place] (5/325)) 1 tab Q6H PRN PO MILD PAIN LEVEL 1-3; Start 01/24/19 at 06:00 Acetaminophen/ Hydrocodone Bitart ([place] (5/325)) 2 tab Q6H PRN PO MODERATE P AIN LEVEL 4-6; Start 01/24/19 at 06:00 Heparin Sodium (Porcine) (Heparin (5000 Units/1ml)) 5,000 unit Q12 SC Last administered on 01/25/19at 08:24; Admin Dose 5,000 UNIT; Start 01/24/19 at 09:00; Status Hold Albuterol/ Ipratropium (Duoneb) 3 ml Q2H RESP THERAPY PRN HHN SHORTNESS OF BREATH; Start 01/24/19 at 06:00 Ceftriaxone Sodium 50 ml @ 100 mls/hr DAILY IVPB Last administered on 01/28/19at 09:09; Admin Dose 100 MLS/HR; Start 01/24/19 at 09:00 Metoprolol Tartrate (Lopressor) 25 mg Q8H PO Last administered on 01/28/19at 09:09; Admin Dose 25 MG; Start 01/24/19 at 17:00 Hydromorphone HCl (Dilaudid SUPERVISOR BROADLOOM) 0.2MG DOSE 10... Q4PCA IV Last administered on 01/26/19at 13:02; Admin Dose 6 MG; Start 01/26/19 at 12:00 Lorazepam (Ativan) 0.5 mg Q8H PRN IV ANXIETY; Start 01/26/19 at 12:30 Dextrose/Sodium Chloride 1,000 ml @ 80 mls/hr [id number] IV Last administered on 01/28/19at 02:46; Admin Dose 80 MLS/HR; Start 01/27/19 at 15:00 MILA MOREIRA MD Jan 28, 2019 10:54
[2019-01-28] MEDS: ACETAMINOPHEN 325 MG TAB PO PRN (14:35)
[2019-01-28 14:41] VITALS: BP 132/78; PULSE 94; RESP 18
[2019-01-28 21:10] VITALS: BP 130/75; PULSE 85; RESP 20
--- NOTE | 2019-01-28 23:06 | CONS ---
DATE OF ADMISSION: 01/24/2019 DATE OF CONSULTATION: 01/28/2019 TYPE OF CONSULTATION: Nephrology REASON FOR CONSULTATION: Acute kidney injury. REQUESTING PHYSICIAN: Dr. Carlos Bassett HISTORY OF PRESENT ILLNESS: This is a 48-year-old female with a past medical history of methamphetam ine abuse who presents to [facility] Emergency Room with complaint of lower abdominal pain. The patient is having long-term intermittent abdominal pain associated with cramps. The patient desc ribed her pain progressively worsened over the past several days. The patient does admit to methamph etamine abuse. The patient, upon arrival to the emergency room, had a CT scan of the abdomen and pel vis which showed a circumscribed cystic mass in the central pelvis, likely of ovarian region, with mi ld hydroureteronephrosis. The patient was subsequently admitted, was seen by urologist, Dr. 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 The patient had multiple imaging studies including an abdominal MRI which showed obstruction of bilateral ureters due to pelvic mass and the hydronephrosis. The patient is currently pending a possible transfer to [facility] for surgical evaluation of her tumor. In terms of the patient's renal history, on admission the patient had a creatinine of 0.84 mg/dL whic h has markedly increased to 5.5 mg/dL in the course of 72 hours. The patient had an attempted nephro stomy tube placement which was successful. No other events noted. PAST MEDICAL HISTORY: Reviewed. ALLERGIES: PATIENT IS ALLERGIC TO IODINE. FAMILY HISTORY: No family history of kidney disease. SOCIAL HISTORY: Positive for methamphetamine abuse. MEDICATIONS: Reviewed. REVIEW OF SYSTEMS: A 14-point review of systems is conducted. Pertinent positives are in HPI, other russell negative. PHYSICAL EXAMINATION: VITAL SIGNS: Blood pressure is 132/78, respiration 18, pulse 104, temperature 98.6. HEENT: Head is normocephalic. NECK: Supple. HEART: Regular rate. LUNGS: Show diminished breath sounds at the base. ABDOMEN: Soft, nontender to palpation without rebound or guarding. EXTREMITIES: Negative for clubbing, cyanosis. No edema. DERMATOLOGIC: No rashes. MUSCULOSKELETAL: No joint effusion. NEUROLOGIC: No focal deficits. LABORATORY DATA: Has has been reviewed. IMAGING STUDIES: Have been reviewed. ASSESSMENT AND PLAN: This is a 48-year-old female presents with: 1. Nonoliguric acute kidney injury. Etiology is secondary to obstructive uropathy due to ovarian ma ss. The patient's abdominal MRI showed obstructive uropathy of bilateral ureters. The patient had a ttempted a nephrostomy tube placement which was unsuccessful. Recommendation at this point is for th e patient to have urgent removal of pelvic mass to relieve and decompress obstruction. We will discu ss with urology if another attempt can be made for nephrostomy tube placement. Would otherwise pernell nue to monitor renal function closely. If renal function should further decline and the patient shou ld develop overt signs of uremia, the patient would be a candidate for renal replacement therapy. 2. Hypernatremia secondary to acute kidney injury. Continue to monitor. 3. Metabolic acidosis secondary to acute kidney injury. Continue to monitor. 4. Anemia. Monitor H and H levels. 5. Mineral bone disorder, monitor calcium and phosphorus levels. 6. Pelvic mass concerning for malignancy. The patient is pending transfer to tertiary center for trivedi rgical removal. 7. Urinary tract infection. Continue antibiotic therapy. 8. Hypertension. Continue current blood pressure regimen. Continue pain control. Thank you, Dr. Bassett, for this interesting consult. It will be a pleasure to follow patient with you throughout the hospital course. Dictated By: LIVIA ALMANZAR/RADHA Conf#: [id number] DID#: [id number]
[2019-01-29] MEDS: METOPROLOL 25 MG TAB PO SCH ×3 (01:30→18:03)
[2019-01-29] MEDS: DEXTROSE 5%-0.45% NACL 1,000 ML IV SCH ×2 (06:03→18:03)
[2019-01-29 07:12] VITALS: BP 134/67; PULSE 89; RESP 18
--- NOTE | 2019-01-29 07:40 | PN ---
DATE: 01/29/2019 SUBJECTIVE: The patient is stable. Urinary output has been adequate, greater than 2 liters. No oth er acute events noted. No hemoptysis, hematemesis, hematochezia. OBJECTIVE: VITAL SIGNS: Blood pressure is 138/75, respiratory rate 20, pulse 85, temperature 98.6. HEENT: Head is normocephalic. NECK: Supple. HEART: Regular rate. LUNGS: Show diminished breath sounds at the base. ABDOMEN: Soft, nontender to palpation without rebound or guarding. EXTREMITIES: Negative for clubbing, cyanosis, no edema. DERMATOLOGIC: No rashes. MUSCULOSKELETAL: No joint effusion. NEUROLOGIC: No change in exam. MEDICATIONS: The patient's medications have been reviewed. LABORATORY DATA: Has been reviewed. IMAGING STUDIES: Have been reviewed. Urinalysis was reviewed. ASSESSMENT AND PLAN: 1. Nonoliguric acute kidney injury. Etiology is felt to be secondary to obstructive uropathy due to ovarian mass. The patient's renal function this morning; however, shows normal renal function. Unc lear if this is a spurious lab; however, the patient did have excellent urinary output greater than 5 liters adjusted suggesting a post-obstructive diuresis. Plan is to repeat a renal panel to confirm improvement in renal function. Otherwise, continue her treatment plan, supportive care, renally dose all meds. Continue to agree with definitive management of removing mass. 2. Hypernatremia, improved. 3. Metabolic acidosis, improved. Continue to monitor. 4. Anemia. Monitor hemoglobin and hematocrit levels. 5. Mineral bone disorder. Monitor calcium and phosphorus levels. 6. Pelvic mass concerning for malignancy. The patient is pending transfer to tertiary center for trivedi rgical removal. 7. Urinary tract infection. Continue current antibiotic therapy. 8. Hypertension. Continue current blood pressure regimen. Continue pain control. Dictated By: LIVIA JOHNSON DO NR/NTS Conf#: [id number] DID#: [id number] CC: CODIE BATEMAN; ESTEBAN TORRES MD; MILA MOREIRA MD;*[facility]*
[2019-01-29] MEDS: CEFTRIAXONE 1 GM/50 ML (PMX) 50 ML IVPB SCH (09:10)
[2019-01-29] MEDS ORDERED: HYDROmorphONE 2 MG TAB PO PRN (13:00)
[2019-01-29 14:17] VITALS: BP 134/81; PULSE 88; RESP 18
[2019-01-29] MEDS: HYDROmorphONE 0.2 MG/ML PCA IV SCH (15:49)
--- NOTE | 2019-01-29 16:13 | PN ---
Date/Time of Note Date/Time of Note DATE: 01/29/19 TIME: 16:11 Assessment/Plan VTE Prophylaxis Risk score (from Ns)>0 risk: 4 SCD applied (from Ns): Yes Pharmacological prophylaxis: NA/contraindicated Pharm contraindication: bleeding Lines/Catheters IV Catheter Type (from Nrsg): Peripheral IV Urinary Cath still in place: Yes Reason Cath still needed: urinary retention Assessment/Plan Assessment/Plan 48 y/o F who presented with pelvic pain and dysuria for the past 4 days; found to have new large pelvic mass with vaginal bleed. 1. Pelvic mass, with hematuria and vaginal bleeding -MRI confirms 13 x 8 x 9 cm pelvic mass obstructing both ureters, tumor markers neg -Gynonc not available for 2 weeks -per laborist, needs gynonc -mass causing obstructive renal failure and severe pain -working on transfer for higher level of care -on dilaudid PARTS REMOVER for intractable pain. I will add dilaudid PO to try to wean her off IV opioids. -vaginal bleeding likely from repeated pelvic exam in the last 2 days, small volume 2. UTI -empiric abx, cultures negative 3. Acute renal failure -appreciate urology input, for Nephrostomy tube placement attempted and unsuccessful 01/26/19 -remains with tomas and mild hematuria -MARIBELL now appears to have resolved. May have been due to contrast-induced nephropathy 4. 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 Result Diagram: 01/29/19 0424 01/29/19 1049 Subjective 24 Hr Interval Summary Free Text/Dictation No acute overnight events. Continues to have intermittent vaginal bleed, especially with sitting up or valsalva. Continues to have severe pelvic pain, still on dilaudid PARTS REMOVER. Exam/Review of Systems Exam Vitals Vital Signs Date Temp Pulse Resp B/P (MAP) Pulse Ox O2 O2 Flow FiO2 Time Delivery Rate 01/29/19 98.4 88 18 134/81 97 14:17 (98) 01/28/19 Room Air 02:05 Intake and Output 01/28/19 01/28/19 01/29/19 1515:00 23:00 07:00 IntakeIntake Total 930 ml 760 ml 1300 ml OutputOutput Total 4000 ml 1600 ml BalanceBalance -3070 ml 760 ml -300 ml Exam Constitutional: alert, oriented, no distress Head: normocephalic, moist mucous membranes. Neck: supple Respiratory: clear to auscultation Cardiovascular: regular rate and rhythm Gastrointestinal: soft, slightly distended, tender to palpation throughout. : Tomas with clear yellow urine. Oozing vaginal bleed. Results Results 24hrs Laboratory Tests Test 01/28/19 16:50 01/29/19 04:24 01/29/19 10:49 Urine Color YELLOW Urine Clarity CLEAR Urine pH 6.0 Urine Specific [place] 1.010 Urine Ketones NEGATIVE Urine Nitrite NEGATIVE Urine Bilirubin NEGATIVE Urine Urobilinogen NEGATIVE Urine Leukocyte Esterase 1+ H Urine Microscopic RBC 52 H Urine Microscopic WBC 11 H Urine Bacteria FEW A Urine Hemoglobin 3+ H Urine Random Creatinine 67.29 Urine Random Sodium Urine Glucose NEGATIVE Urine Total Protein 29.0 H White Blood Count 6.9 # Red Blood Count 3.49 L Hemoglobin 9.9 L Hematocrit 30.0 L Mean Corpuscular Volume 86.0 Mean Corpuscular Hemoglobin 28.4 L Mean Corpuscular Hemoglobin Concent 33.0 Red Cell Distribution Width 13.8 Platelet Count 377 Mean Platelet Volume 9.8 Immature Granulocytes % 0.400 Neutrophils % 67.3 Lymphocytes % 19.7 Monocytes % 9.6 Eosinophils % 2.6 Basophils % 0.4 Nucleated Red Blood Cells % 0.0 Immature Granulocytes # 0.030 Neutrophils # 4.6 Lymphocytes # 1.4 Monocytes # 0.7 Eosinophils # 0.2 Basophils # 0.0 Nucleated Red Blood Cells # 0.0 Sodium Level 136 139 Potassium Level 4.0 4.3 Chloride Level 108 109 Carbon Dioxide Level 22 24 Anion Gap 6 6 Blood Urea Nitrogen 7 # 6 L Creatinine 0.53 # 0.47 Est Glomerular Filtrat Rate mL/min > 60 > 60 Glucose Level 121 103 Calcium Level 8.2 L 8.1 L Medications Medication Current Medications IV Flush (NS 3 ml) 3 ml PER PROTOCOL IV ; Start 01/24/19 at 06:00 Ondansetron HCl (Zofran Inj) 4 mg Q6H PRN IV NAUSEA/VOMITING Last administered on 01/25/19at 10:19; Admin Dose 4 MG; Start 01/24/19 at 06:00 Acetaminophen (Tylenol Tab) 650 mg Q6H PRN PO .PAIN 1-3 OR TEMP Last administered on 01/28/19at 14:35; Admin Dose 650 MG; Start 01/24/19 at 06:00 Acetaminophen/ Hydrocodone Bitart ([place] (5/325)) 1 tab Q6H PRN PO MILD PAIN LEVEL 1-3; Start 01/24/19 at 06:00 Acetaminophen/ Hydrocodone Bitart ([place] (5/325)) 2 tab Q6H PRN PO MODERATE PAIN LEVEL 4-6; Start 01/24/19 at 06:00 Heparin Sodium (Porcine) (Heparin (5000 Units/1ml)) 5,000 unit Q12 SC Last administered on 01/25/19at 08:24; Admin Dose 5,000 UNIT; Start 01/24/19 at 09:00; Status Hold Albuterol/ Ipratropium (Duoneb) 3 ml Q2H RESP THERAPY PRN HHN SHORTNESS OF BREATH; Start 01/24/19 at 06:00 Ceftriaxone Sodium 50 ml @ 100 mls/hr DAILY IVPB Last administered on 01/29/19at 09:10; Admin Dose 100 MLS/HR; Start 01/24/19 at 09:00 Metoprolol Tartrate (Lopressor) 25 mg Q8H PO Last administered on 01/29/19at 09:10; Admin Dose 25 MG; Start 01/24/19 at 17:00 Hydromorphone HCl (Dilaudid PARTS REMOVER) 0.2MG DOSE 10... Q4PCA IV Last administered on 01/29/19at 15:49; Admin Dose 6 MG; Start 01/26/19 at 12:00 Lorazepam (Ativan) 0.5 mg Q8H PRN IV ANXIETY; Start 01/26/19 at 12:30 Dextrose/Sodium Chloride 1,000 ml @ 80 mls/hr [id number] IV Last administered on 01/29/19 06:03; Admin Dose 80 MLS/HR; Start 01/27/19 at 15:00 Hydromorphone HCl (Dilaudid) 2 mg Q3H PRN PO SEVERE PAIN LEVEL 7-10; Start 01/29/19 at 13:00 MILA MOREIRA MD Jan 29, 2019 16:13
[2019-01-29 19:31] VITALS: BP 157/87; PULSE 85; RESP 18
--- NOTE | 2019-01-29 19:32 | CONS ---
Consult Date/Type/Reason Admit Date/Time Jan 24, 2019 at 02:22 Initial Consult Date 01/24/19 Type of Consultation: Urology Reason for Consultation Pelvic mass and lower abdominal pain Requesting Provider: SERGE MARY Date/Time of Note DATE: 01/29/19 TIME: 19:30 Subjective Patient continues to have lower abdominal pain. Objective Vitals Vital Signs Date Temp Pulse Resp B/P (MAP) Pulse Ox O2 O2 Flow FiO2 Time Delivery Rate 01/29/19 98.4 88 18 134/81 97 14:17 (98) 01/28/19 Room Air 02:05 Intake and Output 01/28/19 01/28/19 01/29/19 1515:00 23:00 07:00 IntakeIntake Total 930 ml 760 ml 1300 ml OutputOutput Total 4000 ml 1600 ml BalanceBalance -3070 ml 760 ml -300 ml Exam The Saavedra catheter is draining clear urine and she did have large volume suggesting postobstructive diuresis. Results/Medications Result Diagram: 01/29/19 0424 01/29/19 1049 Results 24 hrs Laboratory Tests Test 01/29/19 04:24 01/29/19 10:49 White Blood Count 6.9 # Red Blood Count 3.49 L Hemoglobin 9.9 L Hematocrit 30.0 L Mean Corpuscular Volume 86.0 Mean Corpuscular Hemoglobin 28.4 L Mean Corpuscular Hemoglobin Concent 33.0 Red Cell Distribution Width 13.8 Platelet Count 377 Mean Platelet Volume 9.8 Immature Granulocytes % 0.400 Neutrophils % 67.3 Lymphocytes % 19.7 Monocytes % 9.6 Eosinophils % 2.6 Basophils % 0.4 Nucleated Red Blood Cells % 0.0 Immature Granulocytes # 0.030 Neutrophils # 4.6 Lymphocytes # 1.4 Monocytes # 0.7 Eosinophils # 0.2 Basophils # 0.0 Nucleated Red Blood Cells # 0.0 Sodium Level 136 139 Potassium Level 4.0 4.3 Chloride Level 108 109 Carbon Dioxide Level 22 24 Anion Gap 6 6 Blood Urea Nitrogen 7 # 6 L Creatinine 0.53 # 0.47 Est Glomerular Filtrat Rate mL/min > 60 > 60 Glucose Level 121 103 Calcium Level 8.2 L 8.1 L Home Meds Active Scripts Ibuprofen* (Motrin*) 600 Mg Tab, 600 MG PO Q6H PRN for PAIN AND OR ELEVATED TEMP, #30 Prov:LUCY CABALLERO [employer]PER[employer]OR WOUND 05/30/15 Reported Medications Naproxen* (Naproxen*) 220 Mg Capsule, 220 MG PO TID, CAP 01/24/19 Medroxyprogesterone Acetate* (Provera*) Unknown Strength Tablet, PO DAILY, TAB 01/24/19 Discontinued Reported Medications [none] Unknown Strength No Conflict Check 05/30/15 Discontinued Scripts Hydrocodone Bit-Acetaminophen* ([place]*) 5-325 Mg Tab, 1 TAB PO Q6 PRN for SEVERE PAIN LEVEL 7-10, #20 TAB Prov:LUCY CABALLERO NP 05/30/15 Triamcinolone Acetonide* (Kenalog*) 0.5%-15GM Cr, 1 APPLIC TOP BID, #1 EA Prov:LUCY CABALLERO NP 03/13/15 Hydroxyzine Hcl* (Hydroxyzine Hcl*) 25 Mg Tablet, 25 MG PO Q8H PRN for ITCHING, #30 TAB Prov:LUCY CABALLERO NP 03/13/15 Cephalexin* (Keflex*) 500 Mg Capsule, 500 MG PO Q6 for 10 Days, CAP Prov:LUCY CABALLERO NP 03/13/15 Medications Current Medications IV Flush (NS 3 ml) 3 ml PER PROTOCOL IV ; Start 01/24/19 at 06:00 Ondansetron HCl (Zofran Inj) 4 mg Q6H PRN IV NAUSEA/VOMITING Last administered on 01/25/19at 10:19; Admin Dose 4 MG; Start 01/24/19 at 06:00 Acetaminophen (Tylenol Tab) 650 mg Q6H PRN PO .PAIN 1-3 OR TEMP Last administered on 01/28/19at 14:35; Admin Dose 650 MG; Start 01/24/19 at 06:00 Acetaminophen/ Hydrocodone Bitart ([place] (5/325)) 1 tab Q6H PRN PO MILD PAIN LEVEL 1-3; Start 01/24/19 at 06:00 Acetaminophen/ Hydrocodone Bitart ([place] (5/325)) 2 tab Q6H PRN PO MODERATE PAIN LEVEL 4-6; Start 01/24/19 at 06:00 Heparin Sodium (Porcine) (Heparin (5000 Units/1ml)) 5,000 unit Q12 SC Last administered on 01/25/19at 08:24; Admin Dose 5,000 UNIT; Start 01/24/19 at 09:00; Status Hold Albuterol/ Ipratropium (Duoneb) 3 ml Q2H RESP THERAPY PRN HHN SHORTNESS OF BREATH; Start 01/24/19 at 06:00 Ceftriaxone Sodium 50 ml @ 100 mls/hr DAILY IVPB Last administered on 01/29/19at 09:10; Admin Dose 100 MLS/HR; Start 01/24/19 at 09:00 Metoprolol Tartrate (Lopressor) 25 mg Q8H PO Last administered on 01/29/19at 18:03; Admin Dose 25 MG; Start 01/24/19 at 17:00 Hydromorphone HCl (Dilaudid INVENTORY ASSOCIATE) 0.2MG DOSE 10... Q4PCA IV Last administered on 01/29/19at 15:49; Admin Dose 6 MG; Start 01/26/19 at 12:00 Lorazepam (Ativan) 0.5 mg Q8H PRN IV ANXIETY; Start 01/26/19 at 12:30 Dextrose/Sodium Chloride 1,000 ml @ 80 mls/hr [id number] IV Last administered on 01/29/19at 18:03; Admin Dose 80 MLS/HR; Start 01/27/19 at 15:00 Hydromorphone HCl (Dilaudid) 2 mg Q3H PRN PO SEVERE PAIN LEVEL 7-10; Start 01/29/19 at 13:00 Assessment/Plan Hospital Course (Demo Recall) 48-year-old female presented to the emergency room was severe abdominal pain. She underwent a CT scan of the abdomen and pelvis and that showed: 1. Complex circumscribed cystic mass located in the central pelvis measuring at least 11 x 11 x 10 cm likely of ovarian origin. Further evaluation with pelvic ultrasound and ultimately MRI recommended. 2. Mild right sided hydroureternephrosis secondary to a several pelvic complex cystic mass. 3. Cystic lesion of the right inferior renal pole measuring 11 x 11 x 10 cm. Further evaluation with renal ultrasound is recommended. 4. Severe disc height loss and anterior spinal degenerative enthesopathy changes involving L4-5. Renal ultrasound: Mild bilateral hydronephrosis. 2.1 cm simple right renal cyst. 13.9 cm potential soft tissue mass in the midline of the pelvis that likely corresponds to the pelvic mass seen on prior CT. Incidental note made of cholelithiasis Pelvic ultrasound: Large solid mass in the pelvis. A possible ovarian mass cannot be excluded. Surgical consultation and pelvic MRI is recommended. Patient states that she has been menopausal for about 2 years and she has been spotting on and off for the past 6 months. She made an appointment with [facility] on January 04 and she went to that appointment but they could not do much because her vagina is too small and there was no place to do the ultrasound. She is supposed to go back to them in February for additional work-up. Presently the patient has an indwelling Saavedra catheter and that is draining clear urine. And her renal function did come back down to normal. Her renal function will be rechecked again in a.m. Patient has not been ambulating and she said she will try tonight. Still awaiting if a [employer] oncologist is available to operate on her. KEEGAN ALBERTO MD Jan 29, 2019 19:32
[2019-01-29] MEDS ORDERED: DIPHENHYDRAMINE 50 MG INJ IV PRN (23:00)
[2019-01-29] MEDS ORDERED: METHYLPREDNISOLONE 125 MG INJ IV ONE (23:00)
[2019-01-30 01:22] VITALS: BP 165/89; PULSE 86; RESP 18
[2019-01-30] MEDS: METOPROLOL 25 MG TAB PO SCH ×3 (01:25→18:42)
[2019-01-30] MEDS: DEXTROSE 5%-0.45% NACL 1,000 ML IV SCH ×2 (05:30→06:52)
[2019-01-30 05:33] VITALS: BP 157/82; PULSE 87
[2019-01-30] MEDS: AMLODIPINE 5 MG TAB PO SCH (06:52)
[2019-01-30 08:01] VITALS: BP 161/89; PULSE 89; RESP 18
[2019-01-30 08:58] VITALS: BP 146/82; PULSE 92; RESP 16
[2019-01-30] MEDS ORDERED: AMLODIPINE 5 MG TAB PO SCH (09:00)
[2019-01-30] MEDS: CEFTRIAXONE 1 GM/50 ML (PMX) 50 ML IVPB SCH (09:01)
--- NOTE | 2019-01-30 09:34 | PN ---
DATE: 01/30/2019 SUBJECTIVE: The patient is stable. She continues to have ongoing pain on PROJ MGR pump. No other events noted. OBJECTIVE: VITAL SIGNS: Blood pressure is 158/82, respirations 16, pulse is 86, temperature 98.4. HEENT: Head is normocephalic. NECK: Supple. HEART: Regular rate. LUNGS: Show diminished breath sounds at the base. ABDOMEN: Soft, nontender to palpation without rebound or guarding. EXTREMITIES: Negative for clubbing, cyanosis, no edema. DERMATOLOGIC: No rashes. MUSCULOSKELETAL: No joint effusion. NEUROLOGIC: No change in exam. MEDICATIONS: Have been reviewed. LABORATORY DATA: Has been reviewed. IMAGING STUDIES: Have been reviewed. ASSESSMENT AND PLAN: 1. Nonoliguric acute kidney injury. Etiology is felt to be secondary to obstructive uropathy, quest ionable intraabdominal hypertension. The patient had excellent renal recovery. The patient's urinar y output has been adequate. We will continue to monitor. 2. Hypernatremia, improved. 3. Metabolic acidosis, improved. 4. Anemia. Monitor hemoglobin and hematocrit levels. 5. Mineral bone disorder. Monitor calcium and phosphorus levels. 6. Pelvic mass concerning for malignancy. The patient is pending transfer to tertiary center for trivedi rgical removal. 7. Urinary tract infection. Continue current antibiotic therapy. 8. Hypertension. Continue current blood pressure regimen. Dictated By: LIVIA JOHNSON DO NR/NTS Conf#: [id number] DID#: [id number] CC: MILA MOREIRA MD; ESTEBAN TORRES MD; CODIE BATEMAN;*End*
[2019-01-30 14:00] VITALS: BP 141/75; PULSE 90; RESP 18
--- NOTE | 2019-01-30 19:47 | PN ---
Date/Time of Note Date/Time of Note DATE: 01/30/19 TIME: 19:44 Assessment/Plan VTE Prophylaxis Risk score (from Ns)>0 risk: 3 SCD applied (from Ns): Yes Pharmacological prophylaxis: NA/contraindicated Pharm contraindication: bleeding Lines/Catheters IV Catheter Type (from Nrsg): Peripheral IV Urinary Cath still in place: Yes Reason Cath still needed: urinary retention Assessment/Plan Hospital Course S: hematuria has resolved, continues to have pain on flank but better controlled, also remains with good urine output O : Constitutional: alert, oriented, no distress Psych: anxiety Head: normocephalic Neck: supple Respiratory: clear to auscultation Cardiovascular: regular rate and rhythm Gastrointestinal: soft, distended, tender Neurological: nl mental status assessment and plan: 48 y/o F who presented with pelvic pain and dysuria for the past 4 days currently managed as follows: 1. Pelvic mass, with hematuria and vaginal bleeding -MRI confirms 13 x 8 x 9 cm pelvic mass obstructing both ureters, tumor markers neg -Gynonc not available for 2 weeks -per laborist, needs gynonc -mass causing obstructive renal failure and severe pain -working on transfer for higher level of care -on dilaudid LOCK OPERATOR for intractable pain with improved control -vaginal bleeding resolvd 2. UTI -empiric abx, cultures negative so far 3. Acute renal failure, hematuria and urinary retention: 2/2 pressure from #1 -s/p attempted Nephrostomy tube placement attempted and unsuccessful 01/26/19 -remains with tomas hematuria, resolved and renal failure resolved on its own with good urine output -likely mass shifted?? 4. accelerated HTN: improved -continue current meds and titrate for optimal control further interventions per course. Result Diagram: 01/30/19 0430 01/30/19 0430 Results 24hrs Laboratory Tests Test 01/30/19 04:30 White Blood Count 7.2 Red Blood Count 4.12 L Hemoglobin 11.5 L Hematocrit 35.5 L Mean Corpuscular Volume 86.2 Mean Corpuscular Hemoglobin 27.9 L Mean Corpuscular Hemoglobin Concent 32.4 Red Cell Distribution Width 13.3 Platelet Count 468 #H Mean Platelet Volume 9.4 Immature Granulocytes % 0.300 Neutrophils % Segmented Neutrophils % (Manual) 95 H Band Neutrophils % (Manual) 2 Lymphocytes % Lymphocytes % (Manual) 3 L Monocytes % Eosinophils % Basophils % Nucleated Red Blood Cells % 0.0 Immature Granulocytes # 0.020 Neutrophils # Neutrophils # (Manual) 6.8 Band Neutrophils # 0.1 Lymphocytes (Manual) 0.2 L Lymphocytes # Monocytes # Eosinophils # Basophils # Nucleated Red Blood Cells # Platelet Estimate INCREASED Giant Platelets 1 H Polychromasia 1+ Sodium Level 139 Potassium Level 4.4 Chloride Level 106 Carbon Dioxide Level 26 Anion Gap 7 Blood Urea Nitrogen 7 Creatinine 0.48 Est Glomerular Filtrat Rate mL/min > 60 Glucose Level 149 # Calcium Level 8.5 Exam/Review of Systems Exam Vitals Vital Signs Date Temp Pulse Resp B/P (MAP) Pulse Ox O2 O2 Flow FiO2 Time Delivery Rate 01/30/19 16 18:00 01/30/19 98.2 90 141/75 92 Room Air 14:00 (97) Intake and Output 01/29/19 01/29/19 01/30/19 1414:59 22:59 06:59 IntakeIntake Total 50 ml 1150 ml 1100 ml OutputOutput Total 1300 ml 1250 ml BalanceBalance 50 ml -150 ml -150 ml Results Results 24hrs Laboratory Tests Test 01/30/19 04:30 White Blood Count 7.2 Red Blood Count 4.12 L Hemoglobin 11.5 L Hematocrit 35.5 L Mean Corpuscular Volume 86.2 Mean Corpuscular Hemoglobin 27.9 L Mean Corpuscular Hemoglobin Concent 32.4 Red Cell Distribution Width 13.3 Platelet Count 468 #H Mean Platelet Volume 9.4 Immature Granulocytes % 0.300 Neutrophils % Segmented Neutrophils % (Manual) 95 H Band Neutrophils % (Manual) 2 Lymphocytes % Lymphocytes % (Manual) 3 L Monocytes % Eosinophils % Basophils % Nucleated Red Blood Cells % 0.0 Immature Granulocytes # 0.020 Neutrophils # Neutrophils # (Manual) 6.8 Band Neutrophils # 0.1 Lymphocytes (Manual) 0.2 L Lymphocytes # Monocytes # Eosinophils # Basophils # Nucleated Red Blood Cells # Platelet Estimate INCREASED Giant Platelets 1 H Polychromasia 1+ Sodium Level 139 Potassium Level 4.4 Chloride Level 106 Carbon Dioxide Level 26 Anion Gap 7 Blood Urea Nitrogen 7 Creatinine 0.48 Est Glomerular Filtrat Rate mL/min > 60 Glucose Level 149 # Calcium Level 8.5 Medications Medication Current Medications IV Flush (NS 3 ml) 3 ml PER PROTOCOL IV ; Start 01/24/19 at 06:00 Ondansetron HCl (Zofran Inj) 4 mg Q6H PRN IV NAUSEA/VOMITING Last administered on 01/25/19 10:19; Admin Dose 4 MG; Start 01/24/19 at 06:00 Acetaminophen (Tylenol Tab) 650 mg Q6H PRN PO .PAIN 1-3 OR TEMP Last administered on 01/28/19 14:35; Admin Dose 650 MG; Start 01/24/19 at 06:00 Acetaminophen/ Hydrocodone Bitart ([place] (5/325)) 1 tab Q6H PRN PO MILD PAIN LEVEL 1-3; Start 01/24/19 at 06:00 Acetaminophen/ Hydrocodone Bitart ([place] (5/325)) 2 tab Q6H PRN PO MODERATE PAIN LEVEL 4-6; Start 01/24/19 at 06:00 Heparin Sodium (Porcine) (Heparin (5000 Units/1ml)) 5,000 unit Q12 SC Last administered on 01/25/19 08:24; Admin Dose 5,000 UNIT; Start 01/24/19 at 09:00; Status Hold Albuterol/ Ipratropium (Duoneb) 3 ml Q2H RESP THERAPY PRN HHN SHORTNESS OF BREATH; Start 01/24/19 at 06:00 Ceftriaxone Sodium 50 ml @ 100 mls/hr DAILY IVPB Last administered on 01/30/19 09:01; Admin Dose 100 MLS/HR; Start 01/24/19 at 09:00 Metoprolol Tartrate (Lopressor) 25 mg Q8H PO Last administered on 01/30/19 18:42; Admin Dose 25 MG; Start 01/24/19 at 17:00 Hydromorphone HCl (Dilaudid LOCK OPERATOR) 0.2MG DOSE 10... Q4PCA IV Last administered on 01/29/19at 15:49; Admin Dose 6 MG; Start 01/26/19 at 12:00 Lorazepam (Ativan) 0.5 mg Q8H PRN IV ANXIETY; Start 01/26/19 at 12:30 Hydromorphone HCl (Dilaudid) 2 mg Q3H PRN PO SEVERE PAIN LEVEL 7-10; Start 01/29/19 at 13:00 Diphenhydramine HCl (Benadryl) 25 mg Q6H PRN IV ITCHING Last administered on 8/ 4/19at 23:18; Admin Dose 25 MG; Start 01/29/19 at 23:00; Stop 01/30/19 at 23:00 Amlodipine Besylate (Norvasc) 5 mg DAILY PO Last administered on 01/30/19at 06:52; Admin Dose 5 MG; Start 01/30/19 at 06:30 SERGE MARY Jan 30, 2019 19:47
[2019-01-30 19:49] VITALS: BP 155/66; PULSE 88; RESP 18
[2019-01-31] MEDS: HYDROmorphONE 0.2 MG/ML PCA IV SCH (00:37)
[2019-01-31] MEDS: METOPROLOL 25 MG TAB PO SCH ×2 (00:59→09:34)
[2019-01-31 01:00] VITALS: BP 138/67; PULSE 88; RESP 16
[2019-01-31 02:51] VITALS: BP 133/64; PULSE 79; RESP 18
[2019-01-31] MEDS: AMLODIPINE 5 MG TAB PO SCH ×2 (05:44→09:34)
[2019-01-31 08:02] VITALS: BP 134/78; PULSE 82; RESP 18
[2019-01-31] MEDS: CEFTRIAXONE 1 GM/50 ML (PMX) 50 ML IVPB SCH (09:34)
[2019-01-31] MEDS ORDERED: HYDROmorphONE 1 MG/ML SYG IV PRN (14:00)
[2019-01-31] MEDS ORDERED: DIPHENHYDRAMINE 25 MG CAP PO PRN (14:00)
[2019-01-31] MEDS ORDERED: HYDROmorphONE 2 MG TAB PO PRN ×3 (14:00→16:00)
[2019-01-31 14:21] VITALS: BP 145/81; PULSE 87; RESP 20
--- NOTE | 2019-01-31 15:08 | PDOCDIS ---
Discharge Instructions CONDITION [id number] Patient Condition: [id number] Stable HOME CARE INSTRUCTIONS: [id number] Special Diet: [id number] high fiber ACTIVITY: [id number] Activity Restrictions: [id number] Slowly Increase Activity Rest between Activity Avoid heavy lifting No Sexual Activity FOLLOW UP/APPOINTMENTS Follow-up Plan Go to [facility] as soon as possible as you have been instructed for evaluation and follow-up with gynecology oncology. SERGE MARY Jan 31, 2019 15:08
--- NOTE | 2019-01-31 15:19 | DS ---
Date/Time of Note Date/Time of Note DATE: 01/31/19 TIME: 15:14 Discharge Summary Admission/Discharge Info Admit Date/Time Jan 24, 2019 at 02:22 Discharge Date/Time Discharge Diagnosis 48 y/o F who presented with pelvic pain and dysuria for the past 4 days currently managed as follows: 1. Pelvic mass, with hematuria and vaginal bleeding -MRI confirms 13 x 8 x 9 cm pelvic mass obstructing both ureters, tumor markers neg -Gynonc not available for 2 weeks -per laborist, needs gynonc -mass causing obstructive renal failure (now resolved) and severe pain: now controlled -vaginal bleeding resolved 2. UTI -s/p 5 days empiric abx, cultures negative so far 3. Acute renal failure, hematuria and urinary retention: 2/2 pressure from #1 -s/p attempted Nephrostomy tube placement attempted and unsuccessful 01/26/19 -remains with tomas. Hematuria, resolved and renal failure resolved on its own with good urine output -likely mass shifted?? 4. accelerated HTN: resolved. Good BP control at this time . Patient Condition: Stable Consults Urology: Andreas Tracy MD Nephrology: Doron Bosch MD Gynecology: Stephanie Paez MD, Lizzie Mendoza MD . Procedures See hospital course . Hospital Course This is a 48-year-old female who had presented to the emergency room with severe pelvic pain and was diagnosed via CAT scan to have a large pelvic mass which was described as a complex circumscribed cystic mass located in central part pelvis. Associated with this mass was systemic inflammatory response syndrome as well as acute renal insufficiency likely from obstructive origin. Patient was seen b y urology and also gynecology oncology consultation was obtained. However gynecology oncology was not available to see the patient, and in-house routine gynecologists felt that this was not a lesion they could handle. Hence they recommended transfer for higher level of care which we began working on right away. In the meantime, the patient's renal function worsened and urology recommended for interventional radiology urostomy placement as he was not able to place a stent due to the presence of the mass obstructing the ureters. Unfortunately, IR attempted but was unsuccessful in placing urostomy tubes. However patient has renal function turned around on its own her urine output improved, hematuria resolved and at this time she is having good urine output but Tomas catheter remains in place. She did have a transient episode of vaginal bleeding likely from recurrent digital vaginal exams but again this spontaneously resolved. Unfortunately despite multiple attempts, we will unable to transfer this patient to a facility where she could get gynecology oncology eval. At this time she is overall stable, she has been able to secure outpatient follow-up with gynecology oncology at [place], she will be discharged in stable condition to follow-up there. Of note is that due to the intractable pain from the pelvic mass, she was maintained on a Dilaudid HULL MOLDER while in-house, everything else was not effective. At this time she will be discharged on oral Dilaudid pills as well as a good bowel regimen until she is able to secure follow-up. . Home Meds Active Scripts Docusate Sodium* (Colace*) 250 Mg Capsule, 250 MG PO DAILY, #30 CAP Prov:TRISTAN MARYLori . 01/31/19 Hydromorphone Hcl* (Dilaudid*) 2 Mg Tablet, 2 MG PO Q4H PRN for SEVERE PAIN LEVEL 7-10, #15 TAB Prov:TRISTAN MARYLori Boris 01/31/19 Metoprolol Tartrate* (Lopressor*) 25 Mg Tab, 25 MG PO Q8H, #90 TAB 1 [facility] 01/31/19 Amlodipine Besylate* (Amlodipine Besylate*) 5 Mg Tablet, 5 MG PO DAILY, #30 TAB 1 [facility] Prov[facility] 01/31/19 Ibuprofen* (Motrin*) 600 Mg Tab, 600 MG PO Q6H PRN for PAIN AND OR ELEVATED TEMP, #30 Prov:LUCY CABALLERO NP 05/30/15 Reported Medications Naproxen* (Naproxen*) 220 Mg Capsule, 220 MG PO TID, CAP 01/24/19 Medroxyprogesterone Acetate* (Provera*) Unknown Strength Tablet, PO DAILY, TAB 01/24/19 Discontinued Reported Medications [none] Unknown Strength No Conflict Check 05/30/15 Discontinued Scripts Hydrocodone Bit-Acetaminophen* ([place]*) 5-325 Mg Tab, 1 TAB PO Q6 PRN for SEVERE PAIN LEVEL 7-10, #20 TAB Prov:LUCY CABALLERO NP 12/3/15 Triamcinolone Acetonide* (Kenalog*) 0.5%-15GM Cr, 1 APPLIC TOP BID, #1 EA Prov:LUCY CABALLREO NP 03/13/15 Hydroxyzine Hcl* (Hydroxyzine Hcl*) 25 Mg Tablet, 25 MG PO Q8H PRN for ITCHING, #30 TAB Prov:LUCY CABALLERO NP 03/13/15 Cephalexin* (Keflex*) 500 Mg Capsule, 500 MG PO Q6 for 10 Days, CAP Prov:LUCY CABALLERO NP 03/13/15 Follow-up Plan Go to [facility] as soon as possible as you have been instructed for evaluation and follow-up with gynecology oncology. Primary Care Provider Care Physician No Primary Time spent on discharge: > 30 minutes SERGE MARY Jan 31, 2019 15:19
--- NOTE | 2019-02-03 06:28 | EN ---
Date/Time of Note Date/Time of Note DATE: 02/03/19 TIME: 06:28 Event Note Medicine Medicine Event Note LATE PROGRESS NOTE DATE OF SERVICE: 01/25/19 SUBJECTIVE: still with a lot of pelvic pain. ,clarifier operator onc review pending OBJECTIVE: Constitutional: alert, oriented, anxious, pain ++ Head: atraumatic, normocephalic Neck: non-tender, supple Respiratory: clear to auscultation Cardiovascular: regular rate and rhythm Gastrointestinal: S/ diffusely sore / +BS Extremities: no edema, good radial pulses Vital Signs Date Temp Pulse Resp B/P (MAP) Pulse Ox O2 O2 Flow FiO2 Time Delivery Rate 01/25/19 98.0 70 16 115/68 98 Room Air 07:33 (84) Intake and Output 01/24/19 01/24/19 01/25/19 1515:00 23:00 07:00 IntakeIntake Total 150 ml 1400 ml OutputOutput Total 450 ml BalanceBalance 150 ml 950 ml Results/Medications Result Diagram: 01/25/19 0434 01/25/19 0434 Results 24 hrs Laboratory Tests Test 01/25/19 04:34 01/25/19 10:24 White Blood Count 14.6 H Red Blood Count 4.17 L Hemoglobin 11.9 L Hematocrit 36.8 L Mean Corpuscular Volume 88.2 Mean Corpuscular Hemoglobin 28.5 L Mean Corpuscular Hemoglobin Concent 32.3 Red Cell Distribution Width 13.8 Platelet Count 336 Mean Platelet Volume 9.8 Immature Granulocytes % 0.500 H Neutrophils % 82.0 H Lymphocytes % 10.0 L Monocytes % 6.0 Eosinophils % 1.2 Basophils % 0.3 Nucleated Red Blood Cells % 0.0 Immature Granulocytes # 0.070 H Neutrophils # 11.9 H Lymphocytes # 1.5 Monocytes # 0.9 Eosinophils # 0.2 Basophils # 0.0 Nucleated Red Blood Cells # 0.0 Sodium Level 134 L Potassium Level 3.9 Chloride Level 105 Carbon Dioxide Level 20 L Anion Gap 9 Blood Urea Nitrogen 21 H Creatinine 2.56 #H Est Glomerular Filtrat Rate mL/min 20 L Glucose Level 122 Calcium Level 7.3 L Phosphorus Level 4.8 Magnesium Level 1.8 Prothrombin Time 13.0 Prothrombin Time Ratio 1.0 INR International Normalized Ratio 0.97 Activated Partial Thromboplast Time 37.8 H Current Medications Dextrose/Sodium Chloride 1,000 ml @ 100 mls/hr Q10H IV Last administered on 01/25/19at 12:12; Admin Dose 100 MLS/HR; Start 01/24/19 at 05:55 IV Flush (NS 3 ml) 3 ml PER PROTOCOL IV ; Start 01/24/19 at 06:00 Ondansetron HCl (Zofran Inj) 4 mg Q6H PRN IV NAUSEA/VOMITING Last administered on 01/25/19at 10:19; Admin Dose 4 MG; Start 01/24/19 at 06:00 Acetaminophen (Tylenol Tab) 650 mg Q6H PRN PO .PAIN 1-3 OR TEMP; Start 01/24/19 at 06:00 Acetaminophen/ Hydrocodone Bitart ([place] (5/325)) 1 tab Q6H PRN PO MILD PAIN LEVEL 1-3; Start 01/24/19 at 06:00 Acetaminophen/ Hydrocodone Bitart ([place] (5/325)) 2 tab Q6H PRN PO MODERATE PAIN LEVEL 4-6; Start 01/24/19 at 06:00 Heparin Sodium (Porcine) (Heparin (5000 Units/1ml)) 5,000 unit Q12 SC Last administered on 01/25/19at 08:24; Admin Dose 5,000 UNIT; Start 01/24/19 at 09:00; Status Hold Albuterol/ Ipratropium (Duoneb) 3 ml Q2H RESP THERAPY PRN HHN SHORTNESS OF BREATH; Start 01/24/19 at 06:00 Ceftriaxone Sodium 50 ml @ 100 mls/hr DAILY IVPB Last administered on 01/25/19a t 08:21; Admin Dose 100 MLS/HR; Start 01/24/19 at 09:00 Metoprolol Tartrate (Lopressor) 25 mg Q8H PO Last administered on 01/25/19at 08:21; Admin Dose 25 MG; Start 01/24/19 at 17:00 Morphine Sulfate (morphine) 4 mg Q4H PRN IV SEVERE PAIN LEVEL 7-10 Last administered on 01/25/19at 12:12; Admin Dose 4 MG; Start 01/25/19 at 10:30 assessment and plan: 48 y/o F who presented with pelvic pain and dysuria for the past 4 days currently managed as follows: 1. Pelvic mass, -MRI confirms 13 x 8 x 9 cm pelvic mass obstructing both ureters, tumor markers neg -reminder sent to clarifier operator onc -mass causing obstructive renal failure and severe pain -pain meds adjusted 2. UTI -empiric abx, cultures negative so far 3. Acute renal failure, hematuria and urinary retention: 2/2 pressure from #1 -appreciate urology input, for Nephrostomy tube placement -monitor electrolytes closely 4. accelerated HTN: improved -continue current meds and titrate for optimal control further interventions per course. Disclaimer: Inadvertent spelling and grammatical errors as well as erroneous comments are likely due to EHR/dictation software use and do not reflect on the quality of delivered patient care. They will be resolved as soon as possible once noted. Also, please note that the electronic time recorded on this node does not necessarily reflect the actual time of the visit. SERGE MARY. Feb 03, 2019 06:28
== END 2019-01-31 17:50 | disposition home or self-care (01) | DRG 392 ==
LOC: E/R 22:55 → MS1 01-24 02:22
PROVIDERS: ADMIT Internal Medicine; ATTEND Family Medicine
PROC: 0WJ Anatomical Regions, General, Inspection (ICD-10-PCS; principal; 2019-01-26)
DX: R19.00 Intra-abdominal and pelvic swelling, mass and lump, unspecified site (principal); N17.9 Acute kidney failure, unspecified; N13.6 Pyonephrosis; R31.9 Hematuria, unspecified; I10 Essential (primary) hypertension; N93.9 Abnormal uterine and vaginal bleeding, unspecified
CPT/HCPCS: 36415; 72196; 73610; 74176; 74182; 75989; 76775; 76830; 76856; 80048; 80053; 80061; 80076; 81001; 81003; 82043; 82378; 83036; 83690; 83735; 84100; 84155; 84443; 85025; 85610; 85730; 86301; 86304; 87086; 96374; 96375; C1729; J0360; J0696; J1170; J1200; J1644; J1885; J2250; J2270; J2405; J2930; J3010; J7040; J7042

== ENCOUNTER 2019-02-04 02:22 | Emergency (ER) | payer SELFPAY ==
[~2019-02-04] VITALS: Ht 162.6 cm; Wt 58.9 kg
[~2019-02-04 02:22] MED LIST changes: -CEPH-443 PO; -HYDR-3498 PO; -HYDR-843 PO; -TRIA15CR52 TOP
[2019-02-04 02:25] VITALS: Ht 162.6 cm; Wt 58.9 kg
--- NOTE | 2019-02-04 02:55 | ERD ---
ER Documentation Chief Complaint Chief Complaint here for urinary catheter bag change, inserted on January 24 HPI The patient is a 48-year-old female, presenting to the ER requesting for a new Saavedra catheter leg bag because it was wet when she was taking her shower. She had a Saavedra catheter due to her last pelvic mass, awaiting for surgery. She denies fever, chills, neck pain, chest pain, dyspnea, abdominal pain, vomiting, diarrhea. Past medical history: Hypertension, pelvic mass, urinary retention, hypertension ROS All systems reviewed and are negative except as per history of present illness. Medications Home Meds Active Scripts Docusate Sodium* (Colace*) 250 Mg Capsule, 250 MG PO DAILY, #30 CAP [facility]. 01/31/19 Hydromorphone Hcl* (Dilaudid*) 2 Mg Tablet, 2 MG PO Q4H PRN for SEVERE PAIN LEVEL 7-10, #15 TAB Prov:TYRA,[facility]. 01/31/19 Metoprolol Tartrate* (Lopressor*) 25 Mg Tab, 25 MG PO Q8H, #90 TAB 1 Refill Prov:SERGE MARY . 01/31/19 Amlodipine Besylate* (Amlodipine Besylate*) 5 Mg Tablet, 5 MG PO DAILY, #30 TAB 1 [facility]. 01/31/19 Ibuprofen* (Motrin*) 600 Mg Tab, 600 MG PO Q6H PRN for PAIN AND OR ELEVATED TEMP, #30 Prov:LUCY CABALLERO NP 05/30/15 Reported Medications Naproxen* (Naproxen*) 220 Mg Capsule, 220 MG PO TID, CAP 01/24/19 Medroxyprogesterone Acetate* (Provera*) Unknown Strength Tablet, PO DAILY, TAB 01/24/19 Allergies Allergies: Coded Allergies: iodine (Unverified Allergy, Unknown, RASH, 01/24/19) PMhx/Soc History of Surgery: Yes (ANKLE FX, ANAL FISSURE REPAIR) Anesthesia Reaction: No Hx Neurological Disorder: No Hx Respiratory Disorders: No Hx Cardiac Disorders: No Hx Psychiatric Problems: No Hx Miscellaneous Medical Probl: No Hx Alcohol Use: Yes (SELDOM) Hx Substance Use: No Hx Tobacco Use: No Physical Exam Vitals Vital Signs Date Temp Pulse Resp B/P (MAP) Pulse Ox O2 O2 Flow FiO2 Time Delivery Rate 02/04/19 98.8 84 16 142/68 97 02:25 (92) Physical Exam Const: No acute distress. Head: Atraumatic. Eyes: Normal Conjunctiva. ENT: Normal External Ears, Nose and Mouth. Neck: Full range of motion. No meningismus. Resp: Clear to auscultation bilaterally. Cardio: Regular rate and rhythm. Abd: Soft, non distended, normal bowel sounds, non tender. Skin: No petechiae or rashes. Back: No midline or flank tenderness. Ext: No cyanosis, or edema. Neur: Awake and alert. No focal deficit Psych: Normal Mood and Affect. Procedures/MDM MEDICAL MAKING DECISION: The patient is a 48-year-old female, presenting to the ER requesting for a new Saavedra catheter bag. It was changed The differential diagnoses considered include but are not limited to clogged Saavedra catheter, cystitis Departure Diagnosis: Primary Impression: Encounter for assessment of Saavedra catheter Condition: Good Comments I discussed the findings with the patient. I advised the patient to follow-up with the primary physician in about 1-2 days, sooner if needed and return if any concern. Disclaimer: Inadvertent spelling and grammatical errors are likely due to EHR/dictation software use and do not reflect on the overall quality of patient care. Also, please note that the electronic time recorded on this note does not necessarily reflect the actual time of the patient encounter. JIM CARD MD Feb 04, 2019 02:55
== END 2019-02-04 03:12 | disposition home or self-care (01) ==
LOC: E/R 02:22
DX: Z46.6 Encounter for fitting and adjustment of urinary device (principal)
CPT/HCPCS: 99282